=== PATIENT | female | born 1995 | race Caucasian/White ===

== ENCOUNTER 2016-02-24 15:15 | Emergency (ER) | payer OTHER ==
[~2016-02-24] VITALS: Ht 160 cm; Wt 79.2 kg
[~2016-02-24 15:15] MED LIST: FLV400 PO; FOLI800T17 PO; ONDA4TAB10 SL
[2016-02-24 15:26] VITALS: TEMP 37.2; Ht 160 cm; Wt 79.2 kg
[2016-02-24] MEDS ORDERED: SODIUM CHLORIDE 0.9% 1000ML 2,000 ML IV STA (16:05)
[2016-02-24] MEDS ORDERED: ONDANSETRON 8 MG/54 ML D5W IV STA (16:05)
[2016-02-24] MEDS ORDERED: ACETAMINOPHEN 500 MG TAB PO STA (16:06)
--- NOTE | 2016-02-24 16:11 | EMERGENCY ROOM VISIT NOTE ---
History Report prepared by Uyen: Alejandro Haywood Under the Supervision of: Dr. Antwon Parrish M.D. First contact with patient: 15:43 Chief Complaint: NAUSEA Stated Complaint: NAUSEA Nursing Triage Summary: Patient c/o n/v x 1 month, worse now. Denies diarrhea. 9 weeks . History of Present Illness The patient is a 20 year old female who presents to the Emergency Room with complaints of intermittent vomiting beginning one month prior to arrival. She currently rates her discomfort as a 7/10 in severity. The patient associates nausea, headache, and a dry mouth with today's symptoms. She states she is 9 weeks . The patient notes she was in the shower today, and could not control herself. She states she was seen in the ED three days ago for similar symptoms, in which, IV Zofran helped relieve her nausea. The patient notes she tried taking Zofran at home, but it did not relieve her nausea. She states she is thirsty and hungry, but she cannot keep anything down. The patient notes she has not taken anything for her headache. Pt denies LOC, fevers, chills, diaphoresis, visual changes, neck pain, chest pain, breathing difficulties, abdominal pain, back pain, melena, hematochezia, urinary symptoms, vaginal bleeding or discharge, numbness, weakness, lymphadenopathy, rash, or other complaints. 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 Review of Systems See HPI for pertinent positives and negatives. A total of ten systems were reviewed and were otherwise negative. Past Medical & Surgical Medical Problems: (1) Chronic Sinusitis Nos (2) Deviated Nasal Septum (3) Nasal Polyp Nos Surgical Problems: (1) No significant past surgical history Family History FH: diabetes mellitus Social History Smoking Status: Never Smoker Alcohol Use: none Drug Use: none Marital Status: Housing Status: lives with significant other Occupation Status: [employer] student Current/Historical Medications Scheduled Folic Acid (Cvs Folic Acid), 800 MCG PO DAILY Scheduled PRN Promethazine Hcl (Phenergan), 25 MG PO Q6H PRN for Nausea Miscellaneous Medications Pyridoxine Hcl (Vitamin B 6) Allergies Coded Allergies: No Known Allergies (Unverified , 02/24/16) Physical Exam Vital Signs Date Time Temp Pulse Resp B/P Pulse Ox O2 Delivery O2 Flow Rate FiO2 02/24/16 19:57 76 18 113/77 97 02/24/16 18:00 86 18 124/78 97 Room Air 02/24/16 15:26 37.2 112 18 124/83 99 Room Air Physical Exam GENERAL: Awake, alert, well-appearing, in no distress HENT: Normocephalic, atraumatic. Oropharynx unremarkable. EYES: Normal conjunctiva. Sclera non-icteric. NECK: Supple. No nuchal rigidity. FROM. No JVD. RESPIRATORY: Clear to auscultation. CARDIAC: Regular rate, normal rhythm. Extremities warm and well perfused. Pulses equal. ABDOMEN: Soft, non-distended. No tenderness to palpation. No rebound or guarding. No masses. RECTAL: Deferred. MUSCULOSKELETAL: Chest examination reveals no tenderness. The back is symmetrical on inspection without obvious abnormality. There is no CVA tenderness to palpation. No joint edema. LOWER EXTREMITIES: Calves are equal size bilaterally and non-tender. No edema. No discoloration. NEURO: Normal sensorium. No sensory or motor deficits noted. SKIN: No rash or jaundice noted. Medical Decision & Procedures Laboratory Results 02/24/16 16:20 Red Blood Count 4.93, Mean Corpuscular Volume 79.9, Mean Corpuscular Hemoglobin 26.6, Mean Corpuscular Hemoglobin Concent 33.2, Mean Platelet Volume 11.0, Neutrophils (%) (Auto) 67.5, Lymphocytes (%) (Auto) 21.8, Monocytes (%) (Auto) 9.0, Eosinophils (%) (Auto) 1.2, Basophils (%) (Auto) 0.2, Neutrophils # (Auto) 4.48, Lymphocytes # (Auto) 1.45, Monocytes # (Auto) 0.60, Eosinophils # (Auto) 0.08, Basophils # (Auto) 0.01 02/24/16 16:20 Test 02/24/16 16:15 02/24/16 16:20 02/24/16 18:35 Urine WBC (Auto) 10-30 /hpf (0-5) Urine RBC (Auto) 0-4 /hpf (0-4) Urine Hyaline Casts (Auto) 1-5 /lpf (0-5) Urine Epithelial Cells (Auto) >30 /lpf (0-5) Urine Bacteria (Auto) 3+ (NEG) Urine Pathogenic Casts /lpf (0) White Blood Count 6.64 K/uL (4.8-10.8) Red Blood Count 4.93 M/uL (4.2-5.4) Hemoglobin 13.1 g/dL (12.0-16.0) Hematocrit 39.4 % (37-47) Mean Corpuscular Volume 79.9 fL (80-100) Mean Corpuscular Hemoglobin 26.6 pg (25-34) Mean Corpuscular Hemoglobin Concent 33.2 g/dl (32-36) Platelet Count 248 K/uL (130-400) Mean Platelet Volume 11.0 fL (7.4-10.4) Neutrophils (%) (Auto) 67.5 % Lymphocytes (%) (Auto) 21.8 % Monocytes (%) (Auto) 9.0 % Eosinophils (%) (Auto) 1.2 % Basophils (%) (Auto) 0.2 % Neutrophils # (Auto) 4.48 K/uL (1.4-6.5) Lymphocytes # (Auto) 1.45 K/uL (1.2-3.4) Monocytes # (Auto) 0.60 K/uL (0.11-0.59) Eosinophils # (Auto) 0.08 K/uL (0-0.5) Basophils # (Auto) 0.01 K/uL (0-0.2) RDW Standard Deviation 43.0 fL (36.4-46.3) RDW Coefficient of Variation 14.8 % (11.5-14.5) Immature Granulocyte % (Auto) 0.3 % Immature Granulocyte # (Auto) 0.02 K/uL (0.00-0.02) Anion Gap 8.0 mmol/L (3-11) Est Creatinine Clear Calc Drug Dose 146.5 ml/min Estimated GFR () 150.0 Estimated GFR (Non- 129.4 BUN/Creatinine Ratio 6.3 (10-20) Calcium Level 8.6 mg/dl (8.5-10.1) Total Bilirubin 0.2 mg/dl (0.2-1) Direct Bilirubin < 0.1 mg/dl (0-0.2) Aspartate Amino Transf (AST/SGOT) 13 U/L (15-37) Alanine Aminotransferase (ALT/SGPT) 39 U/L (12-78) Alkaline Phosphatase 52 U/L (45-117) Total Protein 7.2 gm/dl (6.4-8.2) Albumin 3.5 gm/dl (3.4-5.0) Lipase 105 U/L (73-393) Urine Color YELLOW Urine Appearance CLEAR (CLEAR) Urine pH 7.5 (4.5-7.5) Urine Specific [place] 1.017 (1.000-1.030) Urine Protein NEG (NEG) Urine Glucose (UA) NEG (NEG) Urine Ketones 2+ (NEG) Urine Occult Blood NEG (NEG) Urine Nitrite NEG (NEG) Urine Bilirubin NEG (NEG) Urine Urobilinogen NEG (NEG) Urine Leukocyte Esterase NEG (NEG) Laboratory results reviewed by me Medications Administered Medications (Trade) Dose Ordered Sig/Naomi Route Start Time Stop Time Status Last Admin Dose Admin Sodium Chloride (Nss 1000ml) 2,000 ml @ 999 mls/hr Q2H1M STAT IV 02/24/16 16:05 02/24/16 18:05 DC 02/24/16 16:24 999 MLS/HR Ondansetron HCl (Zofran 8mg Iv) 8 mg NOW STAT IV 02/24/16 16:05 02/24/16 16:06 DC 02/24/16 16:24 8 MG Acetaminophen (Tylenol Tab) 1,000 mg NOW STAT PO 02/24/16 16:06 02/24/16 16:07 DC 02/24/16 16:24 1,000 MG Promethazine HCl (Phenergan 25MG Home Pack) 1 homepack UD ONCE PO 02/24/16 20:00 02/24/16 20:01 DC 02/24/16 19:54 1 HOMEPACK ED Course 1601: The patient was evaluated in room C1B. A complete history and physical exam was performed. 1605: Ordered Ondansetron HCl 8 mg IV, Sodium Chloride 2,000 ml @ 999 mls/hr IV. 1606: Ordered Tylenol Tab 1,000 mg PO. 1743: Reevaluated the patient at this time, and she is feeling better. 1826: Reevaluated the patient at this time, and she is tolerating fluids and crackers. She is still receiving her IV. 0: Reevaluated the patient at this time, and she is doing well. A repeat urinalysis was performed, and it was negative. The patient will be given more nausea medication. 1942: I spoke to DELLA Raphael ([facility]) about the patient's case, and he recommended Phenergan 25MG Q 6 hours for two days then as needed. He noted to have the patient follow up in the office. 1949: I reevaluated the patient. Discussed results and discharge instructions: She verbalized understanding and agreement. The patient is ready for discharge. 1999: Ordered Promethazine HCl 1 homepack PO. Medical Decision Triage Nursing notes reviewed. The patient's presentation and history were concerning for nausea, vomiting and first trimester . Etiologies such as hyperemesis, ocular abnormality, gastroenteritis, food borne illness, infections, obstruction, pancreatitis, appendicitis, diverticulitis, inflammatory bowel disease, GI bleed, biliary pathology, toxicologic as well as others were entertained. Patient was evaluated. She had a benign abdomen. She has not had any abdominal pain just nausea and vomiting. This has been going on for some time. The patient has recently been in the Emergency Room. She was doing better after IV Zofran. The patient had an IV established. She was given 2 L of IV fluids. She is given 8 mg IV Zofran. I discussed the risks and benefits of IV medication. The patient indicated understanding. She did feel much better with this. The patient had unremarkable CBC, chemistry panel, LFTs, lipase. Her urinalysis was somewhat concerning although this was not the best of specimens. The patient was hydrated and nursing instructed her on proper specimen collection. The patient had a repeat urinalysis done and this was clean. She has not had any urinary symptoms. I did contact Dr. Robertson of [facility]. He recommended trying Phenergan every 6 hours for the next 48 hours and then when necessary. The patient was given a home pack and a prescription for this. She will follow-up with the office. She had some normal nausea return prior to discharge and was given an oral dose of Phenergan. I gave my usual and customary discussion regarding this issue. By the evaluation outlined above other emergent etiologies such as those listed in the differential, as well as others, were deemed relatively unlikely. The patient was informed about the findings as listed above. All questions were answered and she was pleased with the treatment. Return instructions were outlined and the patient was discharged in stable condition. The patient was referred to [facility] for follow-up this week for a recheck of the current condition. The chart was completed utilizing [employer] Speech voice recognition software. Grammatical errors, random word insertions, pronoun errors, and incomplete sentences are an occasional consequence of this system due to software limitations, ambient noise, and hardware issues. Any formal questions or concerns about the content, text, or information contained within the body of this dictation should be directly addressed to the physician for clarification. Consults Time Called: 1941 Consulting Physician: DELLA Raphael ([facility]) Returned Call: 1942 I spoke to DELLA Raphael ([facility]) about the patient's case, and he recommended Phenergan 25MG Q 6 hours for two days then as needed. He noted to have the patient follow up in the office. Impression Primary Impression: Nausea Additional Impressions: Vomiting, First trimester Scribe Attestation The scribe's documentation has been prepared under my direction and personally reviewed by me in its entirety. I confirm that the note above accurately reflects all work, treatment, procedures, and medical decision making performed by me. Departure Information Dispostion Home / Self-Care Prescriptions Promethazine Hcl (Phenergan) 25 Mg Tab 25 MG PO Q6H Y for Nausea, #12 TAB Prov: Antwon Parrish MD 02/24/16 Referrals No Doctor, Assigned (PCP) Forms HOME CARE DOCUMENTATION FORM, IMPORTANT VISIT INFORMATION Patient Instructions A Signature Page, [facility] Additional Instructions VOMITING INSTRUCTIONS: DO NOT drive, drink alcohol, operate machinery, or perform dangerous activities today. You were given medications in the ER that can affect your ability to safely function or operate a vehicle. Phenergan(promethazine) tablets 25mg: Take one every 6 hours for nausea for the next 2 days and then take one every six hours as needed for nausea. Avoid alcohol, operating machinery or dangerous equipment, working on ladders or roofs , DRIVING, or situations where being under the influence may be dangerous. Acetaminophen(Tylenol) may be used for fever or pain. Use 1000mg every six hours as needed. Avoid using more than 4000mg in a 24 hour period. Rest and drink plenty of fluids as tolerated. Slow sips of water or sports drinks are recommended instead of large amounts all at once. Continue current medications. Once your stomach is settled start with a clear liquid diet (jello, soup broth, etc.) and then advance as tolerated. You should avoid full, heavy meals for about 24 hrs from the time your symptoms resolved. Return to the ER for persistent vomiting, fevers, abdominal pain, chest pains, difficulty breathing, black or bloody stools, worsening of your condition, or as needed. Follow up with your primary physician in 2-3 days for a recheck of your current condition
[2016-02-24 16:33] LABS: BASO % 0.2 %; BASO ABS # 0.01 K/uL (0-0.2); COMPLETE YES; EOS % 1.2 %; HEMATOCRIT 39.4 % (37-47); IG% 0.3 %; LYMPH % 21.8 %; LYMPH ABS # 1.45 K/uL (1.2-3.4); MEAN CELL VOLUME 79.9 fL (80-100); MEAN CORPUSCULAR HEMOGLOBIN 26.6 pg (25-34); MEAN CORPUSCULAR HGB CONC 33.2 g/dl (32-36); NEUT % 67.5 %; PLATELET COUNT 248 K/uL (130-400); RED BLOOD COUNT 4.93 M/uL (4.2-5.4); WHITE BLOOD COUNT 6.64 K/uL (4.8-10.8)
[2016-02-24 16:36] LABS: URINE APPEARANCE TURBID (CLEAR); URINE BILIRUBIN NEG (NEG); URINE COLOR DK YELLOW; URINE EPITHELIAL CELL AUTO >30 /lpf (0-5); URINE NITRITE NEG (NEG); URINE PH >= 9.0 (4.5-7.5); URINE SPECIFIC GRAVITY 1.026 (1.000-1.030); UROBILINOGEN NEG (NEG)
[2016-02-24 16:47] LABS: MANUAL MICROSCOPIC REQUIRED? NO; REVIEW REQ? YES; SULFASALICYLIC ACID NEG (NEG)
[2016-02-24 16:51] LABS: ALT/SGPT 39 U/L (12-78); AST/SGOT 13 U/L (15-37); BLOOD UREA NITROGEN 4 mg/dl (7-18); BUN/CREATININE RATIO 6.3 (10-20); CALCIUM 8.6 mg/dl (8.5-10.1); CARBON DIOXIDE 25 mmol/L (21-32); CHLORIDE 106 mmol/L (98-107); GLUCOSE 87 mg/dl (70-99); SODIUM 139 mmol/L (136-145)
[2016-02-24 16:53] LABS: ALKALINE PHOSPHATASE 52 U/L (45-117)
[2016-02-24] MEDS ORDERED: PYRI50TA77 PO (17:08)
[2016-02-24 18:51] LABS: URINE APPEARANCE CLEAR (CLEAR); URINE BILIRUBIN NEG (NEG); URINE COLOR YELLOW; URINE NITRITE NEG (NEG); URINE PH 7.5 (4.5-7.5); URINE SPECIFIC GRAVITY 1.017 (1.000-1.030); UROBILINOGEN NEG (NEG)
[2016-02-24 18:53] LABS: MANUAL MICROSCOPIC REQUIRED? NO; REVIEW REQ? NO
[2016-02-24] MEDS ORDERED: PROM25TA9 PO (19:47)
[2016-02-24 19:57] VITALS: BP 113/77; PULSE 76; O2SAT 97
[2016-02-24] MEDS ORDERED: PHENERGAN 25MG HOMEPACK PO ONE (20:00)
== END 2016-02-24 19:57 | disposition home or self-care (01) ==
LOC: C.EDB 15:16 → C.EDC 19:57
DX: O21.9 Vomiting of pregnancy, unspecified (principal); Z3A.09 9 weeks gestation of pregnancy

== ENCOUNTER 2016-02-28 20:19 | Emergency (ER) | payer OTHER ==
[~2016-02-28] VITALS: Ht 157.5 cm; Wt 79.2 kg
[~2016-02-28 20:19] MED LIST changes: -FLV400 PO; -ONDA4TAB10 SL; +PROM25TA9 PO; +PYRI50TA77 PO
[2016-02-28 20:22] VITALS: TEMP 36.9; Ht 157.5 cm; Wt 79.2 kg
[2016-02-28] MEDS ORDERED: SODIUM CHLORIDE 0.9% 1000ML 1,000 ML IV STA ×2 (20:51→22:07)
[2016-02-28] MEDS ORDERED: ONDANSETRON 8 MG/54 ML D5W IV ONE (21:00)
[2016-02-28] MEDS ORDERED: ACETAMINOPHEN 500 MG TAB PO STA (22:07)
--- NOTE | 2016-02-28 22:47 | EMERGENCY ROOM VISIT NOTE ---
History First contact with patient: 20:41 Chief Complaint: VOMITING Stated Complaint: NAUSEA, VOMITING Nursing Triage Summary: Pt has N/V for past two days, Pt 10 weeks History of Present Illness The patient is a 20 year old female who presents to the Emergency Room who is 10 weeks with complaints of nausea and vomiting which started yesterday. The patient states she is unable to keep anything down. She has tried the Zofran and Phenergan which she had at home from prior ER visits for the nausea without any relief. The patient was seen here on February 20 and February 23 for the same symptoms. The patient denies any urinary symptoms of frequency, urgency, dysuria or hematuria. The patient denies any diarrhea. The patient does admit to being constipated. Her last bowel movement was 4 days ago and was hard. She has not taken anything for the constipation. 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 Review of Systems 6 system review was performed and was negative unless stated otherwise in history of present illness. 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 MENTAL Status: Alert and oriented 3. EYES: No icterus noted MOUTH: Mucosa is slightly dry. NECK: Supple, no lymphadenopathy noted. No carotid bruits noted. LUNGS: Clear auscultation without wheezes rales or rhonchi. CARDIAC: Regular rate and rhythm without murmur. Pulses is full and equal throughout. BACK: No CVA tenderness noted. ABDOMEN: Positive bowel sounds all 4 quadrants. Soft, nontender to palpation without organomegaly or masses. EXTREMITIES: No cyanosis or edema noted. Medical Decision & Procedures Medications Administered Medications (Trade) Dose Ordered Sig/Naomi Route Start Time Stop Time Status Last Admin Dose Admin Sodium Chloride (Nss 1000ml) 1,000 ml @ 999 mls/hr Q1H1M STAT IV 02/28/16 20:51 02/28/16 21:51 DC 02/28/16 21:08 999 MLS/HR Ondansetron HCl (Zofran 8mg Iv) 8 mg NOW ONCE IV 02/28/16 21:00 02/28/16 21:01 DC 02/28/16 21:08 8 MG Acetaminophen 1000 mg 1,000 mg NOW STAT PO 02/28/16 22:07 02/28/16 22:08 DC 02/28/16 22:17 1,000 MG Sodium Chloride (Nss 1000ml) 1,000 ml @ 999 mls/hr Q1H1M STAT IV 02/28/16 22:07 02/28/16 23:07 02/28/16 22:17 999 MLS/HR ED Course The patient was evaluated. The patient's case was discussed with Dr. Parrish who agreed with treatment plan. IV access was obtained. The patient was given 1 L normal saline wide-open. The patient was given Zofran 8 mg IV. The patient's case was discussed with who agrees with treatment plan. CBC and differential and renal profile was ordered. Labs are reviewed and were unremarkable. The patient was reevaluated and was feeling slightly better except for she had a headache. The patient was given additional 1 L normal saline wide-open and Tylenol 1 g by mouth for headache. The patient was able to keep down shahla jazzy and crackers. Medical Decision Patient has been here on several occasions for the same symptoms due to her . Labs were ordered to evaluate for dehydration. The patient was hydrated did not have any further episodes of vomiting while in the emergency room and was able to keep down liquids and solids before discharge. Impression Primary Impression: NAUSEA WITH VOMITING, UNSPECIFIED Departure Information Dispostion Home / Self-Care Condition GOOD Referrals [facility] (PCP) Forms HOME CARE DOCUMENTATION FORM, IMPORTANT VISIT INFORMATION Patient Instructions A Signature Page, ED Nausea Vomiting, [facility] Additional Instructions Push fluids. Follow bland diet. Advance diet slowly as tolerated. As soon as you start feeling nauseated, take the Zofran or Phenergan you were prescribed for nausea. Call your MANUFACTURING AREA MANAGER tomorrow for follow-up appointment.
[2016-02-28 22:59] VITALS: BP 127/92; PULSE 98; O2SAT 97
== END 2016-02-28 23:01 | disposition home or self-care (01) ==
LOC: C.EDB 20:20 → C.EDC 23:01
DX: R11.2 Nausea with vomiting, unspecified (principal)

== ENCOUNTER 2016-03-04 13:33 | Emergency (ER) | payer OTHER ==
[~2016-03-04] VITALS: Ht 160 cm; Wt 79.1 kg
[2016-03-04 13:40] VITALS: TEMP 37.5; Ht 160 cm; Wt 79.1 kg
[2016-03-04] MEDS ORDERED: ONDANSETRON INJ 2 MG/ML 2 ML VIAL IV STA (13:47)
[2016-03-04] MEDS ORDERED: SODIUM CHLORIDE 0.9% 1000ML 1,000 ML IV STA (13:47)
--- NOTE | 2016-03-04 15:08 | DIAGNOSTIC IMAGING REPORT ---
ULTRASOUND <14 WKS SINGLE CLINICAL HISTORY: left pelvic pain/11 weeks COMPARISON STUDY: Pelvic ultrasound 12/27/2015. FINDINGS: Transabdominal scanning of the pelvis performed. The patient deferred transvaginal scanning. There is a single intrauterine gestational sac and pole demonstrating a crown-rump length of 3.95 cm. This is consistent with a 10 week and 6 day intrauterine gestation. heart rate was 157 bpm. No pelvic free fluid. There is a 2 cm cyst within the right ovary. Normal color flow within the bilateral ovaries. Within the anterior uterine wall there is a lobular heterogeneous area which measures approximately 5 cm within the myometrium. This results in mild mass effect along the gestational sac. This was not present on the prior pelvic ultrasound. This demonstrates color flow and is therefore unlikely to represent a subchorionic hematoma. Therefore, this is consistent with a uterine contraction. IMPRESSION: 1. Single viable 10 week and 6 day intrauterine gestation. The heart rate was 157 bpm. 2. A 5 cm lobular heterogeneous area within the anterior uterine wall. This was not present on the prior study. Given the vascular nature of this area this most likely represents a uterine contraction. Follow-up nonemergent pelvic ultrasound in 24 hours can be performed to ensure resolution. Electronically signed by: Juanjo Head M.D. 03/04/2016 3:06 PM Dictated Date/Time: 03/04/2016 2:58 PM
--- NOTE | 2016-03-04 15:43 | EMERGENCY ROOM VISIT NOTE ---
History First contact with patient: 13:46 Chief Complaint: VOMITING Stated Complaint: NAUSEA/VOMITING Nursing Triage Summary: N/V, 11 weeks . Pt states she is coming to ED for fluids and zofran. OBGYN told her to come to ED. History of Present Illness The patient is a 20 year old female who presents to the Emergency Room with complaints of nausea and vomiting. The patient is 11 weeks and has been having difficulty controlling her nausea and vomiting. She has tried over- the-counter Zofran and Phenergan without any relief. The patient has been in emergency room on multiple occasions for the same thing in the past. The patient was sent here today by her POLYGRAPH TECHNICIAN. The patient also is complaining of left-sided pelvic pain intermittently for the past week she states it is worse when she was sitting. The patient has been having problems with constipation but states she had a normal bowel movement last evening. The patient denies any urinary symptoms of frequency, urgency or dysuria. Review of Systems 10 system review was performed and was negative unless stated otherwise history of present illness. Past Medical/Surgical History Medical Problems: (1) Chronic Sinusitis Nos (2) Deviated Nasal Septum (3) Nasal Polyp Nos Surgical Problems: (1) No significant past surgical history Family History FH: diabetes mellitus Social History Smoking Status: Never Smoker Alcohol Use: none Drug Use: none Marital Status: Housing Status: lives with significant other Occupation Status: [employer] student Current/Historical Medications Scheduled Folic Acid (Cvs Folic Acid), 800 MCG PO DAILY Pyridoxine Hcl (Vitamin B 6), 1 TAB PO DAILY Scheduled PRN Promethazine Hcl (Phenergan), 25 MG PO Q6H PRN for Nausea Allergies Coded Allergies: No Known Allergies (Unverified , 03/04/16) Physical Exam Vital Signs Date Time Temp Pulse Resp B/P Pulse Ox O2 Delivery O2 Flow Rate FiO2 03/04/16 13:40 37.5 112 17 119/84 99 Room Air Physical Exam GENERAL: 20-year-old female who is 11 weeks appears in no acute distress. MENTAL STATUS: Alert and oriented 3. MOUTH: Mucosa is moist NECK: Supple, no lymphadenopathy noted. No carotid bruits noted. LUNGS: Clear auscultation without wheezes rales or rhonchi. CARDIAC: Regular rate and rhythm without murmur. Pulses is full and equal throughout. BACK: No CVA tenderness noted. ABDOMEN: Positive bowel sounds all 4 quadrants. Soft, patient has tenderness to palpation in the left pelvic region otherwise nontender. EXTREMITIES: No cyanosis or edema noted. Medical Decision & Procedures ER Provider Diagnostic Interpretation: ULTRASOUND <14 WKS SINGLE CLINICAL HISTORY: left pelvic pain/11 weeks COMPARISON STUDY: Pelvic ultrasound 12/27/2015. FINDINGS: Transabdominal scanning of the pelvis performed. The patient deferred transvaginal scanning. There is a single intrauterine gestational sac and pole demonstrating a crown-rump length of 3.95 cm. This is consistent with a 10 week and 6 day intrauterine gestation. heart rate was 157 bpm. No pelvic free fluid. There is a 2 cm cyst within the right ovary. Normal color flow within the bilateral ovaries. Within the anterior uterine wall there is a lobular heterogeneous area which measures approximately 5 cm within the myometrium. This results in mild mass effect along the gestational sac. This was not present on the prior pelvic ultrasound. This demonstrates color flow and is therefore unlikely to represent a subchorionic hematoma. Therefore, this is consistent with a uterine contraction. IMPRESSION: 1. Single viable 10 week and 6 day intrauterine gestation. The heart rate was 157 bpm. 2. A 5 cm lobular heterogeneous area within the anterior uterine wall. This was not present on the prior study. Given the vascular nature of this area this most likely represents a uterine contraction. Follow-up nonemergent pelvic ultrasound in 24 hours can be performed to ensure resolution. Electronically signed by: Juanjo Head M.D. 03/04/2016 3:06 PM Medications Administered Medications (Trade) Dose Ordered Sig/Naomi Route Start Time Stop Time Status Last Admin Dose Admin Sodium Chloride (Nss 1000ml) 1,000 ml @ 999 mls/hr Q1H1M STAT IV 03/04/16 13:47 03/04/16 14:47 DC 03/04/16 14:13 999 MLS/HR Ondansetron HCl (Zofran Inj) 4 mg NOW STAT IV 03/04/16 13:47 03/04/16 13:48 DC 03/04/16 14:13 4 MG ED Course The patient was evaluated. IV access was obtained. The patient was given 1 L normal saline wide-open. The patient was given Zofran 4 mg IV push for nausea. A pelvic ultrasound was ordered and interpreted by the radiologist as above with a possible uterine contraction. A follow-up ultrasound in 24 hours was recommended. I had the caseworker protective services call the patient's POLYGRAPH TECHNICIAN. They stated that they will call the patient with an appointment time for tomorrow for follow -up. The patient was informed of the treatment plan and was in agreement. She was reevaluated and was feeling much better. The patient was discharged home in stable condition. Medical Decision An ultrasound of the pelvis was performed since she was having left pelvic pain. A follow-up was recommended in 24 hours therefore the POLYGRAPH TECHNICIAN was contacted for the follow-up to be performed in the office which they are in agreement with treatment plan. Otherwise the patient had presented with similar symptoms that she has been sent to the emergency room by her POLYGRAPH TECHNICIAN for uncontrolled nausea and vomiting despite taking oral anti-emetics Impression Primary Impression: Vomiting Additional Impression: Abnormal ultrasound of endometrium Departure Information Dispostion Home / Self-Care Condition GOOD Referrals [facility] (PCP) [facility] Forms HOME CARE DOCUMENTATION FORM, IMPORTANT VISIT INFORMATION Patient Instructions A Signature Page, My [employer] Additional Instructions Push fluids. Take Zofran at the earliest onset of nausea. Your POLYGRAPH TECHNICIAN office will be calling you today or tomorrow for a follow-up appointment tomorrow to include an ultrasound for reevaluation. Problem Qualifiers Primary Impression: Vomiting Vomiting Intractability: non-intractable Nausea presence: with nausea
[2016-03-04 16:33] VITALS: BP 118/75; PULSE 102; O2SAT 100
== END 2016-03-04 16:35 | disposition home or self-care (01) ==
LOC: C.EDB 13:34
DX: R11.2 Nausea with vomiting, unspecified (principal); N83.201 Unspecified ovarian cyst, right side

== ENCOUNTER → 2016-04-09 | Outpatient (CLI) | payer OTHER ==
[2016-04-09 14:46] LABS: GTGD 50 Grams
[2016-04-11 15:17] LABS: AFP CONCENTRATION 11.2 NG/ML; AFP MULTIPLE OF MEDIAN 0.38; AFPTS INSULIN DEP DIABETIC? NO; AFPTS MATERNAL WT 176 LBS; ALPHA-FETOPROTEIN RACE OTHER=O; EDD DETERMINED BY ULTRASOUND; ESTRIOL MULTIPLE OF MEDIAN 1.02; HISTORY OF NTD NO; INHIBIN A 99 PG/ML; INHIBIN A MOM 0.62; REPEAT SAMPLE? NO; hCG MULTIPLE OF MEDIAN 0.51
== END | disposition home or self-care (01) ==
LOC: C.LAB1850 12:08
PROVIDERS: ATTEND Obstetrics & Gynecology
DX: Z34.00 Encounter for supervision of normal first pregnancy, unspecified trimester (principal)

== ENCOUNTER 2016-04-25 17:31 | Outpatient (CLI) | payer OTHER ==
[~2016-04-25] VITALS: Ht 160 cm; Wt 80.0 kg
[2016-04-25] MEDS ORDERED: ACETAMINOPHEN 325 MG TAB PO PRN (18:30)
[2016-04-25 19:43] LABS: URINE APPEARANCE CLEAR (CLEAR); URINE BILIRUBIN NEG (NEG); URINE COLOR YELLOW; URINE EPITHELIAL CELL AUTO 20-30 /lpf (0-5); URINE NITRITE NEG (NEG); URINE PH 6.5 (4.5-7.5); URINE SPECIFIC GRAVITY 1.007 (1.000-1.030); UROBILINOGEN NEG (NEG); ZZUR CULT IF INDIC CLEAN CATCH NO
[2016-04-25 19:48] LABS: MANUAL MICROSCOPIC REQUIRED? NO; REVIEW REQ? NO
[2016-04-25 20:04] VITALS: Ht 160 cm; Wt 80.0 kg
== END 2016-04-25 20:20 | disposition home or self-care (01) ==
LOC: C.OPB 17:31 → C.LD 17:31 → C.OPB 20:20
PROVIDERS: ATTEND Obstetrics & Gynecology
DX: O26.852 Spotting complicating pregnancy, second trimester (principal); Z3A.18 18 weeks gestation of pregnancy

== ENCOUNTER 2016-05-10 23:54 | Emergency (ER) | payer OTHER ==
[~2016-05-10] VITALS: Ht 158.8 cm; Wt 83.6 kg
[2016-05-10 23:58] VITALS: TEMP 36.5; Ht 158.8 cm; Wt 83.6 kg
--- NOTE | 2016-05-11 00:57 | EMERGENCY ROOM VISIT NOTE ---
History Report prepared by Uyen: Frederick Parisi Under the Supervision of: Dr. Alesia Colon D.O. First contact with patient: 00:43 Chief Complaint: CONGESTION Stated Complaint: DIFFICULTY BREATHING - WORK RELATED Nursing Triage Summary: Patient reports that her throat has been dry and sore since yesterday and that is making it difficult to breath. Patient also reports sinus pain and congestion, states that she can feel the mucous running down the back of her throat. Bilateral tonsils are swollen, although the left tonsil is more swollen than the right. Some white patchy exudate noted. Throat is reddened. Reports that she is 20 weeks and there aren't many otc medications she is able to take. History of Present Illness The patient is a 20 year old female who presents to the Emergency Room with complaints of persistent cold-like symptoms that started yesterday. The patient also complains of shortness of breath, sinus pain, congestion, and feeling like the mucus is dripping down the back of her throat. The patient describes that her throat and chest feel dry. She notes that in the mornings she has been throwing up every day because of the post-nasal drip. The patient has a history of similar symptoms in the past. She is 20 weeks and has not been able to get much sleep. She notes that she cannot take many OTC medications. She denies fevers or chills. Source of History: patient Onset: yesterday Position: other (global) Timing: other (persistent) Associated Symptoms: + SOB, + vomiting, No chills, No fevers Note: Other associated symptoms: sinus pain, congestion, feeling like the mucus is dripping down her throat, throat/chest feel dry Review of Systems See HPI for pertinent positives & negatives. A total of 10 systems reviewed and were otherwise negative. Past Medical & Surgical Medical Problems: (1) Chronic Sinusitis Nos (2) Deviated Nasal Septum (3) Nasal Polyp Nos (4) with 18 completed weeks gestation (5) Vaginal bleeding during , antepartum Surgical Problems: (1) No significant past surgical history Family History FH: diabetes mellitus Social History Smoking Status: Never Smoker Alcohol Use: none Drug Use: none Marital Status: Housing Status: lives with significant other Occupation Status: [employer] student Current/Historical Medications Scheduled Folic Acid (Cvs Folic Acid), 800 MCG PO DAILY Pyridoxine Hcl (Vitamin B 6), 1 TAB PO DAILY Scheduled PRN Promethazine Hcl (Phenergan), 25 MG PO Q6H PRN for Nausea Allergies Coded Allergies: No Known Allergies (Unverified , 04/25/16) Physical Exam Vital Signs Date Time Temp Pulse Resp B/P Pulse Ox O2 Delivery O2 Flow Rate FiO2 05/11/16 02:12 97 18 107/91 Room Air 05/11/16 01:36 106 20 111/61 98 Room Air 05/11/16 00:08 Room Air 05/10/16 23:58 36.5 100 21 133/75 100 Physical Exam HEENT: Head - normocephalic and atraumatic Pupils are equal, round, and reactive to light. Extraocular eye muscles are intact, and sclera are anicteric. Nose - moist nasal mucosa with enlarged red turbinates. Mouth - moist buccal mucosa. Exudate on bilateral tonsils. Tonsils enlarged bilaterally. Not edematous or erythematous. Neck: Supple; no JVD, nuchal rigidity, cervical lymphadenopathy. Heart: Regular rate and rhythm. There is a normal S1 and S2 with no murmurs, clicks, or gallops appreciated. Lungs: Clear to auscultation bilaterally with no wheezes, rales, or rhonchi. Abdomen: Soft, completely nontender, nondistended, with good bowel sounds. There are no palpable pulsatile masses or hepatosplenomegaly. There is no guarding, rigidity, or rebound noted. Extremities: No evidence of cyanosis, clubbing, or edema. There are easily palpable peripheral pulses. Skin: warm and dry with good turgor and no rashes. Medical Decision & Procedures Medications Administered Medications (Trade) Dose Ordered Sig/Naomi Route Start Time Stop Time Status Last Admin Dose Admin Diphenhydramine HCl (Benadryl Cap) 25 mg NOW ONCE PO 05/11/16 01:45 05/11/16 01:46 DC 05/11/16 02:11 25 MG Procedure Benadryl Cap PO ED Course 0052: Past medical records reviewed. The patient was evaluated in room A9. A complete history and physical exam was performed. 0134: At this time, I reevaluated the patient and she was resting. 0145: Ordered Benadryl Cap 25 mg PO. 0202: Upon reevaluation, the patient is resting comfortably. I recommended that she continue to use Benadryl to help with her congestion. She was instructed to follow-up with OB tomorrow for recheck and additional suggestions Medical Decision The patient is a 20 year old female who presents to the ED with cold-like symptoms. Differential diagnosis includes sinus infection, sinusitis, post- nasal drip, or URI. This is a 20-year-old [place] patient has a history of sinus congestion prior to . Since she has been , the symptoms have worsened. She states that she is unable to lie flat because of the significant postnasal drip. The patient has been having increased difficulty sleeping as a result of this. The patient was encouraged to try Benadryl since this is one of killing medications that she can use during . Impression Primary Impression: Post-nasal drip Scribe Attestation The scribe's documentation has been prepared under my direction and personally reviewed by me in its entirety. I confirm that the note above accurately reflects all work, treatment, procedures, and medical decision making performed by me. Departure Information Dispostion Home / Self-Care Referrals Sydney Lord C.R.N.P. (PCP) Forms HOME CARE DOCUMENTATION FORM, IMPORTANT VISIT INFORMATION Patient Instructions My [facility] [employer] Additional Instructions Rest with your head elevated. Take benadryl for congestion - 25mg every 4 hours Follow up on Thursday with OB
[2016-05-11 01:36] VITALS: O2SAT 98
[2016-05-11 02:12] VITALS: BP 107/91; PULSE 97
== END 2016-05-11 02:17 | disposition home or self-care (01) ==
LOC: C.EDB 23:55 → C.EDA 05-11 02:17
DX: O26.892 Other specified pregnancy related conditions, second trimester (principal); R09.82 Postnasal drip; Z3A.20 20 weeks gestation of pregnancy

== ENCOUNTER 2016-08-06 19:57 | Emergency (ER) | payer OTHER ==
[~2016-08-06] VITALS: Ht 157.5 cm; Wt 88.7 kg
[2016-08-06 19:59] VITALS: TEMP 36.9; Ht 157.5 cm; Wt 88.7 kg
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
[2016-08-06 22:23] LABS: BASO % 0.1 %; BASO ABS # 0.01 K/uL (0-0.2); COMPLETE YES; EOS % 1.5 %; HEMATOCRIT 32.7 % (37-47); IG% 1.8 %; LYMPH % 10.9 %; LYMPH ABS # 0.86 K/uL (1.2-3.4); MEAN CELL VOLUME 77.3 fL (80-100); MEAN CORPUSCULAR HEMOGLOBIN 24.3 pg (25-34); MEAN CORPUSCULAR HGB CONC 31.5 g/dl (32-36); MEAN PLATELET VOLUME 9.3 fL (7.4-10.4); NEUT % 77.7 %; PLATELET COUNT 279 K/uL (130-400); RED BLOOD COUNT 4.23 M/uL (4.2-5.4); WHITE BLOOD COUNT 7.92 K/uL (4.8-10.8)
[2016-08-06 22:33] LABS: INR 0.9 (0.9-1.1); PARTIAL THROMBOPLASTIN RATIO 0.9
[2016-08-06 22:40] LABS: CALCIUM 8.5 mg/dl (8.5-10.1)
[2016-08-06 22:41] LABS: ALT/SGPT 16 U/L (12-78); BLOOD UREA NITROGEN 3 mg/dl (7-18); BUN/CREATININE RATIO 5.7 (10-20); CARBON DIOXIDE 24 mmol/L (21-32); CHLORIDE 105 mmol/L (98-107); CREATININE 0.56 mg/dl (0.60-1.20); GLUCOSE 88 mg/dl (70-99); POTASSIUM 3.6 mmol/L (3.5-5.1); SODIUM 138 mmol/L (136-145)
[2016-08-06 22:44] LABS: ALKALINE PHOSPHATASE 114 U/L (45-117); AST/SGOT 17 U/L (15-37)
[2016-08-06 23:30] LABS: URINE APPEARANCE CLOUDY (CLEAR); URINE BILIRUBIN NEG (NEG); URINE COLOR YELLOW; URINE EPITHELIAL CELL AUTO >30 /lpf (0-5); URINE NITRITE NEG (NEG); URINE SPECIFIC GRAVITY 1.015 (1.000-1.030); UROBILINOGEN NEG (NEG); ZZUR CULT IF INDIC CLEAN CATCH NO
[2016-08-06 23:36] LABS: MANUAL MICROSCOPIC REQUIRED? NO; REVIEW REQ? NO
[2016-08-07 00:23] VITALS: BP 112/79; PULSE 112; O2SAT 99
--- NOTE | 2016-08-07 06:41 | DIAGNOSTIC IMAGING REPORT ---
ULTRASOUND VENOUS DOPPLER LWR EXT BILA CLINICAL HISTORY: Bilateral lower extremity swelling. . COMPARISON STUDY: 01/17/2016 FINDINGS: Real-time and color flow Doppler imaging were performed. Flow was seen within the femoral, popliteal and calf veins with no intraluminal thrombus demonstrated. The saphenous vein is patent. IMPRESSION: No evidence of lower extremity DVT. Electronically signed by: Adi Michelle M.D. 08/07/2016 6:40 AM Dictated Date/Time: 08/07/2016 6:40 AM
== END 2016-08-07 00:27 | disposition home or self-care (01) ==
LOC: C.EDB 19:58
DX: O26.93 Pregnancy related conditions, unspecified, third trimester (principal); R60.9 Edema, unspecified; R00.0 Tachycardia, unspecified; Z83.3 Family history of diabetes mellitus

== ENCOUNTER → 2016-08-08 | Outpatient (CLI) | payer OTHER ==
[2016-08-08 16:33] LABS: HEMATOCRIT 34.3 % (37-47)
[2016-08-08 19:07] LABS: GTGD 50 Grams
== END | disposition home or self-care (01) ==
LOC: C.LAB1850 15:00
PROVIDERS: ATTEND Obstetrics & Gynecology
DX: Z34.02 Encounter for supervision of normal first pregnancy, second trimester (principal)

== ENCOUNTER → 2016-08-12 | Outpatient (CLI) | payer OTHER ==
[2016-08-12 18:46] LABS: URINE APPEARANCE CLEAR (CLEAR); URINE BILIRUBIN NEG (NEG); URINE COLOR YELLOW; URINE EPITHELIAL CELL AUTO >30 /lpf (0-5); URINE NITRITE NEG (NEG); URINE PH 6.5 (4.5-7.5); URINE SPECIFIC GRAVITY 1.018 (1.000-1.030); UROBILINOGEN NEG (NEG)
[2016-08-12 19:42] LABS: MANUAL MICROSCOPIC REQUIRED? NO; REVIEW REQ? NO
== END | disposition home or self-care (01) ==
LOC: C.LABSPEC 17:30
PROVIDERS: ATTEND Obstetrics & Gynecology
DX: Z34.03 Encounter for supervision of normal first pregnancy, third trimester (principal)

== ENCOUNTER → 2016-08-15 | Outpatient (CLI) | payer OTHER | END | disposition home or self-care (01) | LOC: C.LAB1850 09:54 | PROVIDERS: ATTEND Obstetrics & Gynecology | DX: Z34.03 Encounter for supervision of normal first pregnancy, third trimester (principal) ==

== ENCOUNTER 2016-08-16 14:54 | Outpatient (CLI) | payer OTHER ==
[~2016-08-16] VITALS: Ht 160 cm; Wt 86.6 kg
[2016-08-16 15:59] VITALS: Ht 160 cm; Wt 86.6 kg
--- NOTE | 2016-08-19 10:59 | EDITING REQUIRED CODING QUERY ---
DIAGNOSIS NEEDED To promote full compliance with coding requirements relating to patient care, physician participation is requested in all cases of hcc coders uncertainty. Please assist us with the question(s) below: Coding Question: The patient received care in labor and delivery on 08/16/16 as noted within the record. Please document the diagnosis that is being addressed by the medication/treatment. Provider Response: DIAGNOSIS: Decreased movement Thank you for your assistance, Lisy Francisco - Clockmaker
== END 2016-08-16 15:50 | disposition home or self-care (01) ==
LOC: C.LD 14:54 → C.OPB 14:54
PROVIDERS: ATTEND Obstetrics & Gynecology
DX: O36.8130 Decreased fetal movements, third trimester, not applicable or unspecified (principal); Z3A.34 34 weeks gestation of pregnancy

== ENCOUNTER → 2016-08-25 | Outpatient (CLI) | payer OTHER ==
[2016-08-25 18:13] LABS: ALT/SGPT 16 U/L (12-78); BLOOD UREA NITROGEN 5 mg/dl (7-18); BUN/CREATININE RATIO 8.4 (10-20); CALCIUM 8.8 mg/dl (8.5-10.1); CARBON DIOXIDE 23 mmol/L (21-32); CHLORIDE 106 mmol/L (98-107); CREATININE 0.55 mg/dl (0.60-1.20); GLUCOSE 113 mg/dl (70-99); POTASSIUM 3.8 mmol/L (3.5-5.1); SODIUM 137 mmol/L (136-145)
[2016-08-25 18:16] LABS: ALB/GLOB RATIO 0.7 (0.9-2); ALKALINE PHOSPHATASE 118 U/L (45-117); AST/SGOT 12 U/L (15-37)
[2016-09-01 20:20] LABS: CHENODEOXYCHOLIC ACID 1.9 umol/L (< OR = 3.1); CHOLIC ACID <0.5 umol/L (< OR = 1.8); DEOXYCHOLIC ACID 0.7 umol/L (< OR = 2.4); TOTAL BILE ACIDS 2.6 umol/L (< OR = 6.8)
== END | disposition home or self-care (01) ==
LOC: C.LAB1850 16:14
PROVIDERS: ATTEND Obstetrics & Gynecology
DX: R21 Rash and other nonspecific skin eruption (principal)

== ENCOUNTER 2016-09-04 00:29 | Inpatient (IN) | payer OTHER ==
[~2016-09-04] VITALS: Ht 160 cm; Wt 89.5 kg
[2016-09-04] MEDS ORDERED: LACTATED RINGER'S 1000ML 500 ML IV ONE (01:19)
[2016-09-04] MEDS ORDERED: LACTATED RINGER'S 1000ML 1,000 ML IV SCH ×2 (01:19→06:18)
[2016-09-04 02:19] VITALS: Ht 160 cm; Wt 89.5 kg
[2016-09-04] MEDS ORDERED: BUTORPHANOL TARTRATE 1 MG/ML VIAL IV PRN (04:30)
[2016-09-04] MEDS ORDERED: LACTATED RINGER'S 1000ML 1,000 ML IV PRN (06:18)
[2016-09-04] MEDS ORDERED: FENTANYL 2MCG/ML ROPIV 1.25MG/ML 100ML BAG EPI ONE (06:20)
[2016-09-04] MEDS ORDERED: EpHEDrine SULFATE INJ 50 MG/ML AMP ONE (06:20)
[2016-09-04] MEDS ORDERED: BUPIVACAINE 0.25% 30 ML VIAL ONE (06:20)
[2016-09-04] MEDS ORDERED: FENTANYL CITRATE INJ 50 MCG/1 ML 2 ML VIAL ONE (06:23)
[2016-09-04] MEDS ORDERED: PENICILLIN G POTASSIUM IV 6 MU in DEXTROSE 5% 250ML 250 ML IV STA (06:23)
[2016-09-04] MEDS ORDERED: PENICILLIN G POTASSIUM IV 3 MU in DEXTROSE 5% 100ML 100 ML IV PRN (06:30)
[2016-09-04 07:00] LABS: MEAN CORPUSCULAR HEMOGLOBIN 23.3 pg (25-34); MEAN CORPUSCULAR HGB CONC 31.4 g/dl (32-36); MEAN PLATELET VOLUME 10.2 fL (7.4-10.4); PLATELET COUNT 285 K/uL (130-400); RED BLOOD COUNT 4.73 M/uL (4.2-5.4)
[2016-09-04] MEDS ORDERED: OXYTOCIN 30 UNITS/500ML NSS IV ONE (07:34)
[2016-09-04] MEDS ORDERED: LACTATED RINGER'S 1000ML 500 ML IV PRN (07:42)
[2016-09-04] MEDS ORDERED: NALOXONE HCL INJ 1 MG in SODIUM CHLORIDE 0.9% 1000ML 1,000 ML IV PRN (07:42)
[2016-09-04] MEDS ORDERED: FENTANYL 2MCG/ML ROPIV 1.25MG/ML 100ML BAG EPI PRN (07:45)
[2016-09-04] MEDS ORDERED: DiphenhydrAMINE HCL 50 MG/ML VIAL IV PRN (07:45)
[2016-09-04] MEDS ORDERED: NALOXONE HCL INJ 0.4 MG/1 ML VIAL/CARP IV PRN (07:45)
[2016-09-04] MEDS ORDERED: EpHEDrine SULFATE INJ 50 MG/ML AMP IV PRN (07:45)
[2016-09-04] MEDS ORDERED: NALBUPHINE HCL INJ 10 MG/ML AMP IV PRN (07:45)
[2016-09-04] MEDS ORDERED: SUPERCREAM 0.870 % 15GM JAR EXT PRN (09:15)
[2016-09-04] MEDS ORDERED: ACETAMINOPHEN 325 MG TAB PO PRN (09:15)
[2016-09-04] MEDS ORDERED: BENZOCAINE 20% AER SPR 82.5 GM CAN EXT PRN (09:15)
[2016-09-04] MEDS ORDERED: ACETAMINOPHEN/CODEINE 300/30MG TAB PO PRN ×2 (09:15)
[2016-09-04] MEDS ORDERED: LANOLIN OINT EXT PRN ×2 (09:15)
[2016-09-04] MEDS ORDERED: OXYTOCIN 30 UNITS/500ML NSS IV PRN (09:15)
--- NOTE | 2016-09-04 10:21 | Vaginal Delivery Summary ---
Vaginal Delivery Summary Dale is a 20-year-old 1 P0 white female with an EDC of 09/24/2016 who presented at 37 weeks in active labor. She received epidural analgesia and progressed to full dilation. She pushed through 1 contraction for delivery of a viable male . Mouth and nasopharynx were suctioned on the perineum. The rest of the infant delivered quickly. The was then placed on the mother's abdomen for further attention and drying. There is vigorous crying and the infant was moving all 4 limbs. The placenta was expressed intact with a three-vessel cord. A first-degree vaginal laceration was repaired with 2-0 chromic in the usual fashion. Estimated blood loss was 250 mL. bleeding was controlled with dilute Pitocin. Mother and were doing well after delivery.
--- NOTE | 2016-09-04 10:38 | Anesthesia Procedure Note ---
Anesthesia Epidural Removal Nt Date & Time Sep 04, 2016 at 10:37 Vital Signs Pain Intensity: 0.0 Notes Mental Status: alert / awake / arousable, participated in evaluation Nausea / Vomiting: adequately controlled Pain: adequately controlled Airway Patency, RR, SpO2: stable & adequate BP & HR: stable & adequate Hydration State: stable & adequate Neuraxial Anesthesia: was administered Anesthetic Complications: no major complications apparent, pt satisfied with anesthetic care Epidural: removed without complications, with tip intact
[2016-09-04] MEDS: IBUPROFEN 600 MG TAB PO PRN ×2 (12:38→17:56)
[2016-09-04 12:40] VITALS: BP 113/77; PULSE 121; TEMP 36.9
[2016-09-04 15:45] VITALS: BP 98/60; PULSE 89; TEMP 37; O2SAT 99
[2016-09-04 19:30] VITALS: BP 110/75; PULSE 101; TEMP 36.9; O2SAT 99
[2016-09-04] MEDS: DOCUSATE SODIUM 100 MG CAP PO SCH (20:00)
[2016-09-04 23:20] VITALS: BP 97/66; PULSE 102; TEMP 37.2; O2SAT 99
[2016-09-05] MEDS: IBUPROFEN 600 MG TAB PO PRN ×4 (04:38→18:21)
[2016-09-05 04:55] VITALS: BP 104/71; PULSE 103; TEMP 36.7; O2SAT 99
[2016-09-05 06:51] LABS: HEMATOCRIT 29.9 % (37-47)
[2016-09-05 07:00] VITALS: BP 122/89; PULSE 96; TEMP 36.7; O2SAT 97
--- NOTE | 2016-09-05 07:55 | Progress Note ---
Subjective Sep 05, 2016. Subjective conversation w/ patient, physical exam Ambulation: ambulating normally Voiding: no voiding problems Passing Gas: Yes Diet Tolerance: Regular Diet Lochia: Small Feeding Type: Breast Feeding Review of Systems Constitutional: No fever, No chills, No sweats, No weight loss, No weakness, No fatigue, No problem reported Breast: No see HPI, No breast lump, No change in shape, No nipple discharge, No breast pain, No problem reported Objective Vital Signs Date Time Temp Pulse Resp B/P (MAP) Pulse Ox O2 Delivery O2 Flow Rate FiO2 09/05/16 07:00 36.7 96 20 122/89 (100) 97 Room Air 09/05/16 04:55 36.7 103 20 104/71 (82) 99 Room Air 09/04/16 23:20 99 Room Air 09/04/16 23:20 37.2 102 18 97/66 (76) 99 Room Air 09/04/16 19:30 36.9 101 18 110/75 (87) 99 Room Air 09/04/16 15:45 99 Room Air 09/04/16 15:45 37.0 89 16 98/60 (73) 99 Room Air 09/04/16 12:40 36.9 121 18 113/77 (89) Room Air 09/04/16 12:40 Room Air Physical Exam General Appearance: WELL-APPEARING, NO APPARENT DISTRESS Abdomen: non tender, soft Fundus: Firm, Non-Tender, Relation to Umbilicus (3 below U) Extremities: no calf tenderness Laboratory Results Last 24 Hours Test 09/05/16 06:23 Hemoglobin 9.2 g/dL Hematocrit 29.9 % Assessment and Plan Problem List Medical Problems: (1) Abnormal ultrasound of endometrium Status: Acute (2) Acute cholecystitis Status: Acute (3) Bilateral lower extremity edema Status: Acute (4) Dysmenorrhea Status: Acute (5) Nausea Status: Acute (6) Post-nasal drip Status: Acute (7) R11.2 Status: Acute (8) Third trimester Status: Acute (9) Vomiting Status: Acute (10) Vomiting Status: Acute (11) Vomiting affecting , antepartum Status: Acute (12) Vomiting during Status: Acute Surgical Problems: (1) No significant past surgical history Status: Chronic Day#: 1 Continue Routine Care: stable recovery start Fe SO4 daily- Hgb is 9.2 continue rest of care plan
[2016-09-05] MEDS: PRENATAL VITAMIN TAB PO SCH (08:35)
[2016-09-05] MEDS: FERROUS SULFATE 325 MG TAB PO SCH (08:35)
[2016-09-05] MEDS: DOCUSATE SODIUM 100 MG CAP PO SCH ×2 (08:36→20:14)
[2016-09-05 15:40] VITALS: BP 107/72; PULSE 105; TEMP 36.8
[2016-09-05 19:45] VITALS: BP 126/83; PULSE 106; TEMP 36.9
[2016-09-05] MEDS ORDERED: BISACODYL 5 MG TABEC PO SCH (20:00)
[2016-09-06 00:20] VITALS: BP 122/82; PULSE 94; TEMP 36.8; O2SAT 99
[2016-09-06 05:00] VITALS: BP 117/80; PULSE 80; TEMP 36.5; O2SAT 100
[2016-09-06] MEDS: IBUPROFEN 600 MG TAB PO PRN ×2 (06:17→11:19)
--- NOTE | 2016-09-06 07:49 | Discharge Instructions ---
Discharge Instructions Date of Service Sep 06, 2016. Admission Reason for Admission: LABOR Discharge Discharge Diagnosis / Problem: Vaginal delivery Discharge Goals Goal(s): Routine recovery after delivery Activity Recommendations Activity Limitations: per Instructions/Follow-up section . Instructions / Follow-Up Instructions / Follow-Up ACTIVITY RECOMMENDATIONS: * Gradual return to full activity over the next 2-3 weeks. * No lifting - nothing heavier than baby over the next 2-3 weeks. * Do not engage in vigorous exercise, sexual activity or sports until cleared by your physician. * Do not drive or operate any motorized equipment until cleared by your physician. * You may shower/bathe daily. MEDICATIONS: For discomfort or pain, you may use Acetaminophen (Tylenol), Ibuprofen (Advil), or Naproxen (Aleve) following the package directions. For constipation you may use Colace following the package directions. BREAST CARE: If you are not breast feeding: * Wear a supportive bra 24 hours a day for one to two weeks. * Avoid stimulating your breasts and nipples as much as possible during the first few weeks after delivery. * When taking a shower, have the warm water hit your back, not breasts. * When your breasts feel full, apply ice packs. Usually three to four times a day helps ease the discomfort. * Take a mild pain medication (Tylenol / Motrin) when you are uncomfortable. If breast feeding: * Use breast milk to lubricate nipples. Lansinoh cream may be used for sore nipples. You do not need to remove cream prior to breast feeding. If using a different brand of cream, check the label for directions regarding removal of cream prior to nursing. * Wear a supportive bra. * If having problems with breasts or breast feeding, call a content management consultant or your health care provider. EPISIOTOMY CARE: After delivery, if you have an episiotomy (stitches), the following steps will ease discomfort and aid healing. * For the first 24 hours after delivery, place ice packs next to your episiotomy to help reduce swelling. * After the first 24 hour-period, sitz baths, either portable or in the tub, are suggested. A shower with a shower arm sprayed over the episiotomy may be comforting. * Allie care should be done after each voiding and bowel movement. Squirt warm water from a plastic bottle over the perineum (region of the body between the anus and urinary opening) and pat dry. * Use Dermoplast to ease discomfort. Shake container. [place] directly over the episiotomy. Place a Tucks on a clean sanitary pad next to your episiotomy. SPECIAL CARE INSTRUCTIONS: When you are discharged from the hospital, it is important for you to follow the instructions listed below: * During the first week at home, you should be able to care for yourself and your baby. In addition, the usual light household activities are encouraged. * Limit your activities to the way you feel. Do not try to clean the house or move furniture. Be sensible. * If you actively engage in sports and have done so up until the time of your delivery, you may resume these activities as soon as you feel able. This may take up to one month or even longer. Use good judgment. * Continue to take your vitamins for at least six weeks after the of your baby. * Your diet need not be limited unless you were on a special diet before your delivery. Breast-feeding mothers need around 2500 calories per day and at least 64-80 ounces of fluid per day (8 to 10 glasses). * You should eat foods from the four major food groups. Crash diets or fad diets are to be avoided. Eating lean meats, fresh fruits and vegetables, low-fat dairy products, high fiber foods and a regular exercise program, will help you get back to your pre- weight without putting your health at risk. * Constipation is sometimes a problem after delivery. Take a mild laxative as needed. If breast feeding, Milk of Magnesia is acceptable to use. You may use a suppository or Fleets enema if no episiotomy. * A daily shower or tub bath is suggested. Be sure to thoroughly and gently dry the perineum. * A bloody vaginal discharge will usually continue until around four weeks post . A small amount of bleeding may continue for as long as six weeks. Vaginal discharge changes from the bright red bleeding after delivery to pink then brownish and finally yellowish-pink before becoming white and disappearing. * Bleeding may increase with activity. Your first period may come in 4-8 weeks. If you are breast feeding, your period may be delayed even longer. * [place] (sex) can begin whenever both you and your partner feel comfortable and do not have any form of genital infection. It is recommended that you wait at least six weeks for internal and external healing to occur. If you have questions, please talk to your health care practitioner. A condom should be used to prevent infection and . * Foreplay, gentle intercourse and lubrication is very important the first several times to prevent pain. A water-based lubricant such as K-Y jelly or Astroglide may be used. * If you have RH negative blood and your baby is RH positive, you will receive RHOGAM by injection prior to discharge. The nurse will give you a card to keep with you that has the date and place that you received RHOGAM after delivery. * During your care, you had a Rubella screen done to check for the presence of rubella antibodies in your blood. If your test was negative, you will receive a Rubella vaccine prior to discharge. This vaccine may cause a fever, soreness at the injection site and flu-like symptoms. If these symptoms persist, notify your health care practitioner. is not advised for one month after a Rubella vaccine. * Verbalizes understanding of car seat law as reviewed with patient nursing. * Car Seat hand-out given and reviewed with patient by nursing. * Shaken baby information reviewed with patient by nursing. Call you doctor if: * Heavy bleeding (saturating several pads an hour) or passing clots the size of your fist. * A fever >101 degrees F (38.3 degrees C) on two occasions four hours apart and /or chills. * Unusual pain in the pelvic or vaginal areas. * "Baby Blues" lasting longer than two weeks. If you have any questions or concerns, call your health care practitioner at . FOLLOW UP VISIT: * Please call the office at to schedule a 6 week examination. It is important you keep this appointment. It is important for you to make arrangements for either yearly or twice yearly check-ups thereafter. Current Hospital Diet Patient's current hospital diet: Vegetarian Diet Discharge Diet Recommended Diet: Regular Diet Pending Studies Studies pending at discharge: no Medical Emergencies . Who to Call and When: Medical Emergencies: If at any time you feel your situation is an emergency, please call 911 immediately. . Non-Emergent Contact Non-Emergency issues call your: Primary Care Provider . . "Provider Documentation" section prepared by Sharon Paredes. . VTE Core Measure Inpt VTE Proph given/why not?: Treatment not indicated
--- NOTE | 2016-09-06 07:51 | Progress Note ---
Subjective Sep 06, 2016. Subjective conversation w/ patient, physical exam Ambulation: ambulating normally Voiding: no voiding problems Passing Gas: Yes Diet Tolerance: Regular Diet Lochia: Moderate Feeding Type: Bottle Feeding Review of Systems Constitutional: No fever, No chills Respiratory: No cough Cardiac: No chest pain Abdomen: No nausea, No vomiting Objective Vital Signs Date Time Temp Pulse Resp B/P (MAP) Pulse Ox O2 Delivery O2 Flow Rate FiO2 09/06/16 05:00 36.5 80 20 117/80 (92) 100 Room Air 09/06/16 00:20 99 Room Air 09/06/16 00:20 36.8 94 18 122/82 (95) 99 Room Air 09/05/16 19:45 36.9 106 16 126/83 (97) Room Air 09/05/16 15:40 Room Air 09/05/16 15:40 36.8 105 20 107/72 (84) Room Air Physical Exam General Appearance: WELL-APPEARING, NO APPARENT DISTRESS Respiratory/Chest: normal breath sounds, no respiratory distress Cardiovascular: no edema Abdomen: non tender, soft Fundus: Firm Extremities: no calf tenderness Assessment and Plan Problem List Medical Problems: (1) Abnormal ultrasound of endometrium Status: Acute (2) Acute cholecystitis Status: Acute (3) Bilateral lower extremity edema Status: Acute (4) Dysmenorrhea Status: Acute (5) Nausea Status: Acute (6) Post-nasal drip Status: Acute (7) R11.2 Status: Acute (8) Third trimester Status: Acute (9) Vomiting Status: Acute (10) Vomiting Status: Acute (11) Vomiting affecting , antepartum Status: Acute (12) Vomiting during Status: Acute Surgical Problems: (1) No significant past surgical history Status: Chronic Day#: 2 Continue Routine Care: Normal recovery, discharge instructions reviewed.
[2016-09-06] MEDS: PRENATAL VITAMIN TAB PO SCH (08:31)
[2016-09-06] MEDS: FERROUS SULFATE 325 MG TAB PO SCH (08:31)
[2016-09-06] MEDS: DOCUSATE SODIUM 100 MG CAP PO SCH (08:31)
[2016-09-06 08:53] VITALS: BP 124/82; PULSE 100; TEMP 36.6; O2SAT 99
[2016-09-06 11:20] VITALS: BP_DIAS 82; PULSE 100; TEMP 36.6
== END 2016-09-06 11:25 | disposition home or self-care (01) | DRG 775 ==
LOC: C.OPB 00:29 → C.LD 00:30 → C.OPB 06:28 → C.OBG 12:39
PROVIDERS: ADMIT Obstetrics & Gynecology; ATTEND Obstetrics & Gynecology
PROC: 10E0XZZ Delivery of Products of Conception, External Approach (ICD-10-PCS; principal; 2016-09-04)
PROC: 0HQ9XZZ Repair Perineum Skin, External Approach (ICD-10-PCS; principal; 2016-09-04)
DX: O76 Abnormality in fetal heart rate and rhythm complicating labor and delivery (principal); O70.0 First degree perineal laceration during delivery; Z3A.37 37 weeks gestation of pregnancy; Z37.0 Single live birth

== ENCOUNTER → 2016-10-17 | Outpatient (CLI) | payer OTHER ==
[2016-10-17 16:51] LABS: HEMATOCRIT 39.5 % (37-47)
== END | disposition home or self-care (01) ==
LOC: C.LAB1850 14:35
PROVIDERS: ATTEND Obstetrics & Gynecology
DX: O99.019 Anemia complicating pregnancy, unspecified trimester (principal)

== ENCOUNTER 2016-10-27 21:51 | Emergency (ER) | payer OTHER ==
[~2016-10-27] VITALS: Ht 160 cm; Wt 83.6 kg
[2016-10-27 21:53] VITALS: TEMP 36.6; Ht 160 cm; Wt 83.6 kg
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
[2016-10-27] MEDS ORDERED: ACETAMINOPHEN 500 MG TAB PO STA (22:14)
[2016-10-27 23:50] VITALS: BP 128/80; PULSE 68; O2SAT 97
--- NOTE | 2016-10-28 06:48 | DIAGNOSTIC IMAGING REPORT ---
LEFT ANKLE MIN 3 VIEWS ROUTINE CLINICAL HISTORY: Lateral malleolus pain. COMPARISON: None FINDINGS: Alignment of the left ankle is anatomic. No acute fracture is identified. Talar dome is intact. There is an equivocal 6 mm subchondral lucency within the lateral talar dome. IMPRESSION: 1. No acute fracture or dislocation of the left ankle. 2. Possible osteochondral defect of the lateral talar dome. If persistent left ankle pain, an MRI of the left ankle could be obtained. Electronically signed by: Guillaume Ledesma M.D. 10/28/2016 6:46 AM Dictated Date/Time: 10/28/2016 6:42 AM
--- NOTE | 2016-10-28 06:48 | DIAGNOSTIC IMAGING REPORT ---
LEFT FOOT MIN 3 VIEWS ROUTINE CLINICAL HISTORY: Lateral malleolus pain. COMPARISON: None FINDINGS: The tarsometatarsal joints are intact. No acute fracture or osseous lesion is identified on this examination. Joint spaces are preserved. There are no erosions. IMPRESSION: No acute fracture or dislocation of the left foot. Electronically signed by: Guillaume Ledesma M.D. 10/28/2016 6:47 AM Dictated Date/Time: 10/28/2016 6:46 AM
== END 2016-10-28 00:10 | disposition home or self-care (01) ==
LOC: C.EDB 21:52 → C.EDA 10-28 00:10
DX: M25.572 Pain in left ankle and joints of left foot (principal)

== ENCOUNTER 2016-11-17 14:31 | Emergency (ER) | payer OTHER ==
[2016-11-17 14:50] VITALS: TEMP 37.4; Ht 160 cm
--- NOTE | 2016-11-17 16:03 | EMERGENCY ROOM VISIT NOTE ---
History First contact with patient: 15:19 Chief Complaint: ABDOMINAL PAIN Stated Complaint: STOMACH PAIN,UNABLE TO PEE Nursing Triage Summary: pt c/o lower right abdominal pain and nausea 3 hours ago. pt states she is unable to urinate. pt states last times he voided was 0730 this. pt denies vomiting, diarrhea. History of Present Illness The patient is a 20 year old female who presents to the Emergency Room with complaints of right sided flank pain. The pain began after class this morning at 11:30am when she tried to urinate. She states she was unable to urinate and had 10/10, sharp, constant pain radiating from her right flank to groin. She states the pain was as bad as child , she recently had her first child 2 months ago. She states that she is currently menstruating but this is different from that kind of discomfort. She has not vomiting but states she became dizzy from the pain and was almost unable to call the ambulance. She denies any recent burning of urination or history of UTIs. She denies any recent blood in her urine or history of kidney stones. She currently states that her pain is 9/ 10 and radiating from her right flank to right groin. Review of Systems See HPI for pertinent positives and negatives. A total of ten systems were reviewed and were otherwise negative. Constitutional: No fever, No chills, No fatigue Respiratory: No cough, No sputum, No shortness of breath Cardiovascular: No chest pain, No palpitations Abdomen: No pain, No nausea, No vomiting, No diarrhea, No constipation Genitourinary - Female: + urinary retention, + problem reported (Right sided flank pain), No dysuria, No urinary frequency, No urinary incontinence, No hematuria Past Medical/Surgical History Medical Problems: (1) Chronic Sinusitis Nos (2) Deviated Nasal Septum (3) labor (4) Nasal Polyp Nos (5) with 18 completed weeks gestation (6) Vaginal bleeding during , antepartum Surgical Problems: (1) No significant past surgical history Family History FH: diabetes mellitus Social History Smoking Status: Never Smoker Alcohol Use: none Drug Use: none Marital Status: Housing Status: lives with significant other Occupation Status: [employer] student Current/Historical Medications No Active Prescriptions or Reported Meds Physical Exam Vital Signs Date Time Temp Pulse Resp B/P (MAP) Pulse Ox O2 Delivery O2 Flow Rate FiO2 11/17/16 21:26 110 18 131/89 100 Room Air 11/17/16 18:53 101 16 106/63 99 Room Air 11/17/16 17:21 103 18 126/88 100 Room Air 11/17/16 14:50 37.4 109 20 133/88 99 Room Air Physical Exam GENERAL: Awake, alert, well-appearing, in mild distress HENT: Normocephalic, atraumatic. Oropharynx unremarkable. EYES: Normal conjunctiva. Sclera non-icteric. NECK: Supple. No nuchal rigidity. RESPIRATORY: Clear to auscultation. CARDIAC: Regular rate, normal rhythm. Extremities warm and well perfused. Pulses equal. ABDOMEN: Soft, non-distended. No rebound or guarding. No masses. Bladder nondistended. Suprapubic tenderness RECTAL: Deferred. MUSCULOSKELETAL: Chest examination reveals no tenderness. The back is symmetrical on inspection without obvious abnormality. There is no CVA tenderness to palpation. LOWER EXTREMITIES: Calves are equal size bilaterally and non-tender. No edema. No discoloration. NEURO: Normal sensorium. No sensory or motor deficits noted. SKIN: No rash or jaundice noted. Medical Decision & Procedures Laboratory Results 11/17/16 17:22 Red Blood Count 5.19, Mean Corpuscular Volume 73.8, Mean Corpuscular Hemoglobin 23.3, Mean Corpuscular Hemoglobin Concent 31.6, Mean Platelet Volume 10.9, Neutrophils (%) (Auto) 76.4, Lymphocytes (%) (Auto) 17.1, Monocytes (%) (Auto) 5.4, Eosinophils (%) (Auto) 0.6, Basophils (%) (Auto) 0.2, Neutrophils # (Auto) 7.80, Lymphocytes # (Auto) 1.74, Monocytes # (Auto) 0.55, Eosinophils # (Auto) 0.06, Basophils # (Auto) 0.02 11/17/16 17:22 Test 11/17/16 16:15 11/17/16 17:22 Urine Color YELLOW Urine Appearance CLOUDY (CLEAR) Urine pH 7.5 (4.5-7.5) Urine Specific [place] 1.021 (1.000-1.030) Urine Protein NEG (NEG) Urine Glucose (UA) NEG (NEG) Urine Ketones NEG (NEG) Urine Occult Blood 3+ (NEG) Urine Nitrite NEG (NEG) Urine Bilirubin NEG (NEG) Urine Urobilinogen NEG (NEG) Urine Leukocyte Esterase TRACE (NEG) Urine WBC (Auto) 5-10 /hpf (0-5) Urine RBC (Auto) >30 /hpf (0-4) Urine Hyaline Casts (Auto) 1-5 /lpf (0-5) Urine Epithelial Cells (Auto) 20-30 /lpf (0-5) Urine Bacteria (Auto) NEG (NEG) Urine Test NEG (NEG) White Blood Count 10.20 K/uL (4.8-10.8) Red Blood Count 5.19 M/uL (4.2-5.4) Hemoglobin 12.1 g/dL (12.0-16.0) Hematocrit 38.3 % (37-47) Mean Corpuscular Volume 73.8 fL (80-100) Mean Corpuscular Hemoglobin 23.3 pg (25-34) Mean Corpuscular Hemoglobin Concent 31.6 g/dl (32-36) Platelet Count 301 K/uL (130-400) Mean Platelet Volume 10.9 fL (7.4-10.4) Neutrophils (%) (Auto) 76.4 % Lymphocytes (%) (Auto) 17.1 % Monocytes (%) (Auto) 5.4 % Eosinophils (%) (Auto) 0.6 % Basophils (%) (Auto) 0.2 % Neutrophils # (Auto) 7.80 K/uL (1.4-6.5) Lymphocytes # (Auto) 1.74 K/uL (1.2-3.4) Monocytes # (Auto) 0.55 K/uL (0.11-0.59) Eosinophils # (Auto) 0.06 K/uL (0-0.5) Basophils # (Auto) 0.02 K/uL (0-0.2) RDW Standard Deviation 47.0 fL (36.4-46.3) RDW Coefficient of Variation 17.4 % (11.5-14.5) Immature Granulocyte % (Auto) 0.3 % Immature Granulocyte # (Auto) 0.03 K/uL (0.00-0.02) Anion Gap 8.0 mmol/L (3-11) Estimated GFR () 146.1 Estimated GFR (Non- 126.0 BUN/Creatinine Ratio 8.9 (10-20) Calcium Level 8.7 mg/dl (8.5-10.1) Total Bilirubin 0.3 mg/dl (0.2-1) Direct Bilirubin < 0.1 mg/dl (0-0.2) Aspartate Amino Transf (AST/SGOT) 18 U/L (15-37) Alanine Aminotransferase (ALT/SGPT) 36 U/L (12-78) Alkaline Phosphatase 78 U/L (45-117) Total Protein 7.3 gm/dl (6.4-8.2) Albumin 3.5 gm/dl (3.4-5.0) Lipase 128 U/L (73-393) Medications Administered Medications (Trade) Dose Ordered Sig/Naomi Route Start Time Stop Time Status Last Admin Dose Admin Ketorolac Tromethamine (Toradol Inj) 10 mg ONE STAT IV. 11/17/16 17:30 11/17/16 17:31 DC 11/17/16 17:30 10 MG ED Course Patient is a 20 year old female that presents with a 4 hour history of right sided flank pain Lab/Imaging: - Right sided abdominal ultrasound - CBC - BMP - Blood HCG - Urinalysis - Bladder scan revealed 390cc Patient Catheterized --> changed UA and Beta-Hcg to urine cath samples Patient complained of continued 6/10 abdominal pain --> Treated with 10mg IV Toradol Patient has continued abdominal discomfort despite catheterization and pain medication Renal US showed no stones in the kidneys or ureter and patient continues to have suprapubic pain Abdominal CT ordered --> Non-obstructing left renal calculus Repeat US showed 100cc of retained urine Attempted to recatheterize patient to discharge home with Martin catheter although the patient requested to be discharged home without a Martin Plan to discharge patient home with follow up with Urology as outpatient Medical Decision Patient is a 20 year old female that presents with a 4 hour history of right sided flank pain Etiologies such as nephrolithiasis, ureterolithiasis, renal colic, appendicitis , diverticulitis, mesenteric ischemia, aortic pathology, infections, inflammatory bowel disease, PUD, biliary pathology, UTI, as well as others were entertained. The patient was initially worked up for urinary retention and catheterized in the ED with initial relief. Workup including CT scan and lab workup showed no evidence of infection or ureteral calculus or obstruction. The patient had the catheter removed but continued having urinary retention with a bladder scan of 100cc. The patient refused to have a Martin placed on discharge and that she would follow up with Urology tomorrow morning. Impression Primary Impression: Bilateral flank mass Additional Impression: Urinary retention Departure Information Dispostion Home / Self-Care Condition GOOD Prescriptions No Active Prescriptions or Reported Meds Referrals No Doctor, Assigned (PCP) Patient Instructions My [facility] Resident Tracking Resident Involvement: Resident Care Provided Care Provided: Adult ED Problem Qualifiers
[2016-11-17 16:44] LABS: URINE APPEARANCE CLOUDY (CLEAR); URINE BILIRUBIN NEG (NEG); URINE COLOR YELLOW; URINE EPITHELIAL CELL AUTO 20-30 /lpf (0-5); URINE NITRITE NEG (NEG); URINE PH 7.5 (4.5-7.5); URINE SPECIFIC GRAVITY 1.021 (1.000-1.030); UROBILINOGEN NEG (NEG)
[2016-11-17 16:45] LABS: MANUAL MICROSCOPIC REQUIRED? NO; REVIEW REQ? NO
[2016-11-17] MEDS ORDERED: KETOROLAC TROMETHAMINE 15 MG/ML VIAL IV. STA (17:30)
[2016-11-17 17:35] LABS: BASO % 0.2 %; BASO ABS # 0.02 K/uL (0-0.2); COMPLETE YES; EOS % 0.6 %; HEMATOCRIT 38.3 % (37-47); IG% 0.3 %; LYMPH % 17.1 %; LYMPH ABS # 1.74 K/uL (1.2-3.4); MEAN CELL VOLUME 73.8 fL (80-100); MEAN CORPUSCULAR HEMOGLOBIN 23.3 pg (25-34); MEAN CORPUSCULAR HGB CONC 31.6 g/dl (32-36); MEAN PLATELET VOLUME 10.9 fL (7.4-10.4); MONO % 5.4 %; NEUT % 76.4 %; PLATELET COUNT 301 K/uL (130-400); RED BLOOD COUNT 5.19 M/uL (4.2-5.4)
[2016-11-17] MEDS ORDERED: KETOROLAC TROMETHAMINE 30 MG/ML VIAL ONE (17:51)
[2016-11-17 17:52] LABS: BLOOD UREA NITROGEN 6 mg/dl (7-18); BUN/CREATININE RATIO 8.9 (10-20); CALCIUM 8.7 mg/dl (8.5-10.1); CARBON DIOXIDE 23 mmol/L (21-32); CHLORIDE 108 mmol/L (98-107); CREATININE 0.65 mg/dl (0.60-1.20); GLUCOSE 89 mg/dl (70-99); POTASSIUM 3.7 mmol/L (3.5-5.1); SODIUM 139 mmol/L (136-145)
--- NOTE | 2016-11-17 18:20 | DIAGNOSTIC IMAGING REPORT ---
EXAMINATION: RENAL ULTRASOUND CLINICAL HISTORY: Right sided flank pain, concern for kidney stone COMPARISON STUDY: None FINDINGS: The right kidney measures 10.7 cm. The left kidney measures 11.2 cm. There is no evidence of hydronephrosis. There are no renal masses. The bladder was empty at the time of scanning. There was an indwelling Martin catheter. IMPRESSION : 1. No renal abnormalities identified. Electronically signed by: Adi Michelle M.D. 11/17/2016 6:19 PM Dictated Date/Time: 11/17/2016 6:18 PM
--- NOTE | 2016-11-17 19:14 | DIAGNOSTIC IMAGING REPORT ---
CT SCAN OF THE ABDOMEN AND PELVIS WITHOUT CONTRAST CLINICAL HISTORY: Right-sided abdominal pain COMPARISON STUDY: 11/02/2015 TECHNIQUE: CT scan of the abdomen and pelvis was performed from the lung bases to the proximal femurs. Images are reviewed in the axial, sagittal, and coronal planes. IV contrast was not administered for this examination. A dose lowering technique was utilized adhering to the principles of ALARA. CT DOSE: 582.92 mGy.cm FINDINGS: Lower chest: The heart is normal in size and configuration, without pericardial effusion. The lung bases and pleural spaces are clear. Liver: The unenhanced liver is normal in size, contour, and attenuation. There is no intrahepatic biliary ductal dilatation. Gallbladder: Surgically absent Spleen: Normal in size and attenuation. Pancreas: Unremarkable. Adrenal glands: Unremarkable. Kidneys: There is a punctate nonobstructing lower pole left renal calculus. No ureteral or bladder calculi are visualized Bowel: There are no transition zones indicate bowel obstruction. There is no acute diverticulitis. The appendix appears normal. Peritoneum: There is no intraperitoneal free air or abdominal ascites. Vasculature: The abdominal aorta is normal in course and caliber. Adenopathy: None. Pelvic viscera: There is a 28 mm right ovarian follicle. There is an indwelling Martin catheter. Skeletal structures: No destructive osseous lesions are seen. IMPRESSION: 1. No evidence of bowel obstruction. No evidence of free air 2. Normal appendix. No evidence of acute diverticulitis 3. 28 mm right ovarian follicle 4. Punctate nonobstructing left renal calculus. No ureteral calculi identified Electronically signed by: Adi Michelle M.D. 11/17/2016 7:12 PM Dictated Date/Time: 11/17/2016 7:08 PM
[2016-11-17 19:22] LABS: ALKALINE PHOSPHATASE 78 U/L (45-117); ALT/SGPT 36 U/L (12-78); AST/SGOT 18 U/L (15-37)
[2016-11-17 21:26] VITALS: BP 131/89; PULSE 110; O2SAT 100
--- NOTE | 2016-11-17 21:58 | EMERGENCY ROOM VISIT NOTE ---
History Report prepared by Retaibuzair: Benigno Potts Under the Supervision of: Dr. Marito Delatorre M.D. First contact with patient: 15:19 Chief Complaint: ABDOMINAL PAIN Stated Complaint: STOMACH PAIN,UNABLE TO PEE Nursing Triage Summary: pt c/o lower right abdominal pain and nausea 3 hours ago. pt states she is unable to urinate. pt states last times he voided was 0730 this. pt denies vomiting, diarrhea. History of Present Illness The patient is a 20 year old female who presents to the Emergency Room with complaints of constant bilateral sided flank pain since 1130. She rates her discomfort as a 10/10 in severity. The patient states that she came home from class this afternoon and tried to urinate. She states that she was unable to urinate and experienced a sharp painful sensation radiating from her flank to her groin. The patient reports that the pain was "as bad as child ". She states that she was doubled up on the floor and was unable to call an ambulance. She reports that she tried to urinate twice since and has not been successful. The patient reports that she had her first child two months ago. She admits to a history of gallbladder stones, but denies a history of UTI and kidney stones. The patient denies any fevers, chills, hematuria, burning sensation while urinating, and a possible . Source of History: patient Onset: 1130 Position: other (right flank) Symptom Intensity: 10/10 Quality: sharp Timing: constant Associated Symptoms: No fevers, No chills Review of Systems See HPI for pertinent positives & negatives. A total of 10 systems reviewed and were otherwise negative. Past Medical & Surgical Medical Problems: (1) Chronic Sinusitis Nos (2) Deviated Nasal Septum (3) labor (4) Nasal Polyp Nos (5) with 18 completed weeks gestation (6) Vaginal bleeding during , antepartum Surgical Problems: (1) No significant past surgical history Family History FH: diabetes mellitus Social History Smoking Status: Never Smoker Alcohol Use: none Drug Use: none Marital Status: Housing Status: lives with significant other Occupation Status: [employer] student Current/Historical Medications No Active Prescriptions or Reported Meds Allergies Coded Allergies: No Known Allergies (Unverified , 09/05/16) Physical Exam Vital Signs Date Time Temp Pulse Resp B/P (MAP) Pulse Ox O2 Delivery O2 Flow Rate FiO2 11/17/16 21:26 110 18 131/89 100 Room Air 11/17/16 18:53 101 16 106/63 99 Room Air 11/17/16 17:21 103 18 126/88 100 Room Air 11/17/16 14:50 37.4 109 20 133/88 99 Room Air Physical Exam Constitutional: Vital signs reviewed. Eyes: Pupils are equal round reactive to light. Conjunctiva are noninjected. ENT: Pharynx is clear without erythema or exudate. Mucous membranes are moist. Neck supple without meningeal signs. Respiratory: Clear to auscultation bilaterally. Breath sounds are equal bilaterally. Cardiovascular: Regular rate and rhythm. No rubs or gallops. GI: Soft, nondistended and suprapubic tenderness. Bowel sounds are present. Musculoskeletal: No peripheral edema. Integumentary: No cyanosis. Neurological: The patient is awake and alert. No focal deficits. Psychiatric: Normal affect. Medical Decision & Procedures ER Provider Diagnostic Interpretation: Radiology results as stated below per my review and the radiologist's interpretation: EXAMINATION: RENAL ULTRASOUND CLINICAL HISTORY: Right sided flank pain, concern for kidney stone COMPARISON STUDY: None FINDINGS: The right kidney measures 10.7 cm. The left kidney measures 11.2 cm. There is no evidence of hydronephrosis. There are no renal masses. The bladder was empty at the time of scanning. There was an indwelling Martin catheter. IMPRESSION : 1. No renal abnormalities identified. Electronically signed by: Adi Michelle M.D. 11/17/2016 6:19 PM Dictated Date/Time: 11/17/2016 6:[address] SCAN OF THE ABDOMEN AND PELVIS WITHOUT CONTRAST CLINICAL HISTORY: Right-sided abdominal pain COMPARISON STUDY: 11/02/2015 TECHNIQUE: CT scan of the abdomen and pelvis was performed from the lung bases to the proximal femurs. Images are reviewed in the axial, sagittal, and coronal planes. IV contrast was not administered for this examination. A dose lowering technique was utilized adhering to the principles of ALARA. CT DOSE: 582.92 mGy.cm FINDINGS: Lower chest: The heart is normal in size and configuration, without pericardial effusion. The lung bases and pleural spaces are clear. Liver: The unenhanced liver is normal in size, contour, and attenuation. There is no intrahepatic biliary ductal dilatation. Gallbladder: Surgically absent Spleen: Normal in size and attenuation. Pancreas: Unremarkable. Adrenal glands: Unremarkable. Kidneys: There is a punctate nonobstructing lower pole left renal calculus. No ureteral or bladder calculi are visualized Bowel: There are no transition zones indicate bowel obstruction. There is no acute diverticulitis. The appendix appears normal. Peritoneum: There is no intraperitoneal free air or abdominal ascites. Vasculature: The abdominal aorta is normal in course and caliber. Adenopathy: None. Pelvic viscera: There is a 28 mm right ovarian follicle. There is an indwelling Martin catheter. Skeletal structures: No destructive osseous lesions are seen. IMPRESSION: 1. No evidence of bowel obstruction. No evidence of free air 2. Normal appendix. No evidence of acute diverticulitis 3. 28 mm right ovarian follicle 4. Punctate nonobstructing left renal calculus. No ureteral calculi identified Electronically signed by: Adi Michelle M.D. 11/17/2016 7:12 PM Dictated Date/Time: 11/17/2016 7:08 PM Laboratory Results 11/17/16 17:22 Red Blood Count 5.19, Mean Corpuscular Volume 73.8, Mean Corpuscular Hemoglobin 23.3, Mean Corpuscular Hemoglobin Concent 31.6, Mean Platelet Volume 10.9, Neutrophils (%) (Auto) 76.4, Lymphocytes (%) (Auto) 17.1, Monocytes (%) (Auto) 5.4, Eosinophils (%) (Auto) 0.6, Basophils (%) (Auto) 0.2, Neutrophils # (Auto) 7.80, Lymphocytes # (Auto) 1.74, Monocytes # (Auto) 0.55, Eosinophils # (Auto) 0.06, Basophils # (Auto) 0.02 11/17/16 17:22 Test 11/17/16 16:15 11/17/16 17:22 Urine Color YELLOW Urine Appearance CLOUDY (CLEAR) Urine pH 7.5 (4.5-7.5) Urine Specific [place] 1.021 (1.000-1.030) Urine Protein NEG (NEG) Urine Glucose (UA) NEG (NEG) Urine Ketones NEG (NEG) Urine Occult Blood 3+ (NEG) Urine Nitrite NEG (NEG) Urine Bilirubin NEG (NEG) Urine Urobilinogen NEG (NEG) Urine Leukocyte Esterase TRACE (NEG) Urine WBC (Auto) 5-10 /hpf (0-5) Urine RBC (Auto) >30 /hpf (0-4) Urine Hyaline Casts (Auto) 1-5 /lpf (0-5) Urine Epithelial Cells (Auto) 20-30 /lpf (0-5) Urine Bacteria (Auto) NEG (NEG) Urine Test NEG (NEG) White Blood Count 10.20 K/uL (4.8-10.8) Red Blood Count 5.19 M/uL (4.2-5.4) Hemoglobin 12.1 g/dL (12.0-16.0) Hematocrit 38.3 % (37-47) Mean Corpuscular Volume 73.8 fL (80-100) Mean Corpuscular Hemoglobin 23.3 pg (25-34) Mean Corpuscular Hemoglobin Concent 31.6 g/dl (32-36) Platelet Count 301 K/uL (130-400) Mean Platelet Volume 10.9 fL (7.4-10.4) Neutrophils (%) (Auto) 76.4 % Lymphocytes (%) (Auto) 17.1 % Monocytes (%) (Auto) 5.4 % Eosinophils (%) (Auto) 0.6 % Basophils (%) (Auto) 0.2 % Neutrophils # (Auto) 7.80 K/uL (1.4-6.5) Lymphocytes # (Auto) 1.74 K/uL (1.2-3.4) Monocytes # (Auto) 0.55 K/uL (0.11-0.59) Eosinophils # (Auto) 0.06 K/uL (0-0.5) Basophils # (Auto) 0.02 K/uL (0-0.2) RDW Standard Deviation 47.0 fL (36.4-46.3) RDW Coefficient of Variation 17.4 % (11.5-14.5) Immature Granulocyte % (Auto) 0.3 % Immature Granulocyte # (Auto) 0.03 K/uL (0.00-0.02) Anion Gap 8.0 mmol/L (3-11) Estimated GFR () 146.1 Estimated GFR (Non- 126.0 BUN/Creatinine Ratio 8.9 (10-20) Calcium Level 8.7 mg/dl (8.5-10.1) Total Bilirubin 0.3 mg/dl (0.2-1) Direct Bilirubin < 0.1 mg/dl (0-0.2) Aspartate Amino Transf (AST/SGOT) 18 U/L (15-37) Alanine Aminotransferase (ALT/SGPT) 36 U/L (12-78) Alkaline Phosphatase 78 U/L (45-117) Total Protein 7.3 gm/dl (6.4-8.2) Albumin 3.5 gm/dl (3.4-5.0) Lipase 128 U/L (73-393) Laboratory results as reviewed by me. Medications Administered Medications (Trade) Dose Ordered Sig/Naomi Route Start Time Stop Time Status Last Admin Dose Admin Ketorolac Tromethamine (Toradol Inj) 10 mg ONE STAT IV. 11/17/16 17:30 11/17/16 17:31 DC 11/17/16 17:30 10 MG ED Course 1556: The patient was evaluated in room A10. A complete history and physical exam was performed. 1750: Ordered Toradol Injection 30 mg IV. 1844: I reevaluated the patient and she is experiencing tenderness in the suprapubic region and bilateral flank areas. 2129: The resident reevaluated the patient and she would like to leave without a catheter. Her bladder showed 100 ccs of fluid. He discussed the patient's results and treatment plan, which she agrees to. The patient is ready for discharge. Medical Decision This is a 20-year-old female who presents with flank pain and difficulty urinating. Differential diagnosis includes urinary retention, kidney stone, UTI , pyelonephritis, mass. I did perform a limited focused review of portions of the patient's old chart on the electronic medical record. The patient has had a recent visit on October 27 for foot pain. I did evaluate the patient as noted above. IV access was established. Bladder scan was performed and the patient had almost 300 mL of urine. She was unable to urinate and so Martin catheter was placed. I did order and personally review the patient's urinalysis as described above. I did order and review the patient 's blood work as noted in the electronic medical record. Renal function is normal. . Renal ultrasound was performed and was unremarkable. On reassessment the patient is having continued pain. She was given Toradol IV. I did order a CT of the abdomen and pelvis. I did review the images myself as well as the radiology report as described above. CT was unremarkable. The patient wanted the Martin catheter removed. She was unable to urinate afterwards. A bladder scan was performed and she did have about 100 mL of urine. She refused Martin cath replacement. She was advised follow up with urology and [facility] regular doctor. She was told to return for any worsening symptoms. She was discharged in good condition. Resident Physician Supervision Note: I did evaluate and examine this patient myself. I did guide management for the patient. I agree with the resident's (Dr. Salomon) assessment as discussed. Please see the resident's dictation for further details. Medication Reconcilliation Current Medication List: was personally reviewed by me Blood Pressure Screening Patient's blood pressure: Elevated blood pressure Impression Primary Impression: Bilateral flank pain Additional Impression: Urinary retention Scribe Attestation The scribe's documentation has been prepared under my direct and personally reviewed by me in its entirety. I confirm that the note above accurately reflects all work, treatment, procedures, and medical decision making performed by me. Departure Information Dispostion Home / Self-Care Prescriptions No Active Prescriptions or Reported Meds Referrals No Doctor, Assigned (PCP) Forms HOME CARE DOCUMENTATION FORM, IMPORTANT VISIT INFORMATION Patient Instructions My [facility] Additional Instructions You have been examined and treated today on an emergency basis only. This is not a substitute for, or an effort to provide, complete comprehensive medical care. It is impossible to recognize and treat all injuries or illnesses in a single emergency department visit. It is therefore important that you follow up closely with your physician. Call as soon as possible for an appointment with Dr. Lee. Return for worsening symptoms or if you develop fever, vomiting, abdominal pain, back pain, or any other concerning symptoms. You were treating in the hospital for urinary retention with pain medication ( Toradol) and a urinary catheter. It is important that you follow up with Urology tomorrow and call the office of Dr. Lee with the information provided. Problem Qualifiers
== END 2016-11-17 21:55 | disposition home or self-care (01) ==
LOC: C.EDB 14:32 → C.EDA 21:55
DX: R22.2 Localized swelling, mass and lump, trunk (principal); R33.9 Retention of urine, unspecified; R42 Dizziness and giddiness; Z83.3 Family history of diabetes mellitus

== ENCOUNTER 2016-11-18 10:48 | Emergency (ER) | payer OTHER ==
[~2016-11-18] VITALS: Ht 157.5 cm; Wt 83.3 kg
[2016-11-18 10:53] VITALS: TEMP 37.4; Ht 157.5 cm; Wt 83.3 kg
[2016-11-18] MEDS ORDERED: SODIUM CHLORIDE 0.9% 1000ML 1,000 ML IV STA (11:20)
--- NOTE | 2016-11-18 11:46 | EMERGENCY ROOM VISIT NOTE ---
History First contact with patient: 11:07 Chief Complaint: UNABLE TO VOID Stated Complaint: NOT ABLE TO URINATE Nursing Triage Summary: "I am not able to urinate. I was here for the same thing before and I haven't yet." per pt. Pt 2 months History of Present Illness The patient is a 20 year old female who presents to the Emergency Room with complaints of inability to urinate for 2 days. The patient is currently 2 months , and had a normal vaginal delivery. She was seen in the emergency department yesterday for the same complaints. At that time, she had lab work, a right-sided abdominal ultrasound, and CT scan performed. CT scan was significant only for a nonobstructing renal calculus on the left. The patient states she was offered discharge with a Martin catheter yesterday, but declined. She states when she went home, she drank 2 very small classes of water last night, but has had nothing to eat or drink today. The patient states she is having a slight amount of suprapubic pain, but denies any back pain, fever, chills, nausea, vomiting. She states she has not moved her bowels for 2 days, however has also had a significantly decreased appetite. The patient is scheduled for a urology appointment next Thursday. She is currently menstruating and has a heavy flow. She denies any chest pain, dyspnea, headache , dizziness. She was able to void approximately 50 mL upon arrival to the emergency department. She states she did not void last night, but did void approximately 50 mL this morning at home. He states the urine does appear very bloody. Review of Systems A complete 10 point review of systems was reviewed with the patient with pertinent positives and negatives as per history of present illness. All else were negative. Past Medical/Surgical History Medical Problems: (1) Chronic Sinusitis Nos (2) Deviated Nasal Septum (3) labor (4) Nasal Polyp Nos (5) with 18 completed weeks gestation (6) Vaginal bleeding during , antepartum Surgical Problems: (1) No significant past surgical history Family History FH: diabetes mellitus Social History Smoking Status: Never Smoker Alcohol Use: none Drug Use: none Marital Status: Housing Status: lives with significant other Occupation Status: [employer] Current/Historical Medications No Active Prescriptions or Reported Meds Physical Exam Vital Signs Date Time Temp Pulse Resp B/P (MAP) Pulse Ox O2 Delivery O2 Flow Rate FiO2 11/18/16 14:53 88 16 123/77 99 11/18/16 12:54 87 18 106/72 100 11/18/16 10:53 37.4 102 16 114/88 99 Room Air Physical Exam VITALS: Vitals are noted on the nurse's note and reviewed by myself. Vital signs stable. GENERAL: This is a 20-year-old female, in no acute distress, nondiaphoretic, well-developed well-nourished. SKIN: The skin was without rashes, erythema, edema, or bruising. There is no tenting of the skin. Capillary reflex less than 2 seconds. HEAD: Normocephalic atraumatic. EARS: External auditory canals clear, tympanic membranes pearly márquez without erythema or effusion bilaterally. EYES: Pupils equal round and reactive to light and accommodation. Conjunctivae without injection, sclerae without icterus. Extraocular movements intact. NOSE: Patent, turbinates without inflammation or discharge. No sinus tenderness. MOUTH: Mucous membranes moist. Tonsils are not enlarged. Pharynx without erythema or exudate. Uvula midline. Airway patent. Tongue does not deviate. NECK: Supple without nuchal rigidity. No lymphadenopathy. No thyromegaly. Cervical spine is nontender. No JVD. HEART: Regular rate and rhythm without murmurs gallops or rubs. LUNGS: Clear to auscultation bilaterally without wheezes, rales or rhonchi. No dullness to percussion. No retractions or accessory muscle use. ABDOMEN: Positive bowel sounds x 4. Normal tympanic percussion. There are mild tenderness suprapubically and in the right and left lower quadrants. Otherwise, the abdomen was soft, nontender, without masses or organomegaly. Pendleton sign negative. No guarding or rebound tenderness. MUSCULOSKELETAL: No muscle atrophy, erythema, or edema noted. Full range of motion without joint tenderness in all extremities. No tenderness to palpation. Normal gait. Strength 5/5 throughout. NEURO: Patient was alert and oriented to person place and time. Normal sensation to light and sharp touch. Deep tendon reflexes 2+ throughout. No focal neurological deficits. Medical Decision & Procedures ER Provider Diagnostic Interpretation: Serum test was negative. CMP did not show significant electrolyte abnormalities, renal or hepatic function abnormalities. CBC was without leukocytosis, thrombocytopenia. The patient is extremely mildly anemic with a hemoglobin of 11.1. Laboratory Results 11/18/16 11:50 Red Blood Count 5.07, Mean Corpuscular Volume 74.8, Mean Corpuscular Hemoglobin 21.9, Mean Corpuscular Hemoglobin Concent 29.3, Mean Platelet Volume 10.6, Neutrophils (%) (Auto) 56.9, Lymphocytes (%) (Auto) 34.1, Monocytes (%) (Auto) 6.5, Eosinophils (%) (Auto) 1.9, Basophils (%) (Auto) 0.3, Neutrophils # (Auto) 3.60, Lymphocytes # (Auto) 2.16, Monocytes # (Auto) 0.41, Eosinophils # (Auto) 0.12, Basophils # (Auto) 0.02 11/18/16 11:50 Test 11/18/16 11:50 11/18/16 13:05 White Blood Count 6.33 K/uL (4.8-10.8) Red Blood Count 5.07 M/uL (4.2-5.4) Hemoglobin 11.1 g/dL (12.0-16.0) Hematocrit 37.9 % (37-47) Mean Corpuscular Volume 74.8 fL (80-100) Mean Corpuscular Hemoglobin 21.9 pg (25-34) Mean Corpuscular Hemoglobin Concent 29.3 g/dl (32-36) Platelet Count 319 K/uL (130-400) Mean Platelet Volume 10.6 fL (7.4-10.4) Neutrophils (%) (Auto) 56.9 % Lymphocytes (%) (Auto) 34.1 % Monocytes (%) (Auto) 6.5 % Eosinophils (%) (Auto) 1.9 % Basophils (%) (Auto) 0.3 % Neutrophils # (Auto) 3.60 K/uL (1.4-6.5) Lymphocytes # (Auto) 2.16 K/uL (1.2-3.4) Monocytes # (Auto) 0.41 K/uL (0.11-0.59) Eosinophils # (Auto) 0.12 K/uL (0-0.5) Basophils # (Auto) 0.02 K/uL (0-0.2) RDW Standard Deviation 47.7 fL (36.4-46.3) RDW Coefficient of Variation 17.6 % (11.5-14.5) Immature Granulocyte % (Auto) 0.3 % Immature Granulocyte # (Auto) 0.02 K/uL (0.00-0.02) Toxic Granulation 1+ Anisocytosis PRESENT Microcytosis PRESENT Anion Gap 8.0 mmol/L (3-11) Est Creatinine Clear Calc Drug Dose 138.0 ml/min Estimated GFR () 146.8 Estimated GFR (Non- 126.7 BUN/Creatinine Ratio 12.0 (10-20) Calcium Level 8.6 mg/dl (8.5-10.1) Total Bilirubin 0.3 mg/dl (0.2-1) Aspartate Amino Transf (AST/SGOT) 14 U/L (15-37) Alanine Aminotransferase (ALT/SGPT) 31 U/L (12-78) Alkaline Phosphatase 79 U/L (45-117) Total Protein 7.5 gm/dl (6.4-8.2) Albumin 3.5 gm/dl (3.4-5.0) Globulin 4.0 gm/dl (2.5-4.0) Albumin/Globulin Ratio 0.9 (0.9-2) Human Chorionic Gonadotropin, Qual NEG (NEG) Urine Color RED Urine Appearance CLEAR (CLEAR) Urine pH 6.5 (4.5-7.5) Urine Specific [place] 1.015 (1.000-1.030) Urine Protein 1+ (NEG) Urine Glucose (UA) NEG (NEG) Urine Ketones TRACE (NEG) Urine Occult Blood 3+ (NEG) Urine Nitrite NEG (NEG) Urine Bilirubin NEG (NEG) Urine Urobilinogen NEG (NEG) Urine Leukocyte Esterase NEG (NEG) Urine RBC >30 /hpf (0-4) Urine WBC 5-10 /hpf (0-5) Urine Epithelial Cells 5-10 /lpf (0-5) Urine Bacteria NEG (NEG) Medications Administered Medications (Trade) Dose Ordered Sig/Naomi Route Start Time Stop Time Status Last Admin Dose Admin Sodium Chloride 1,000 ml @ 999 mls/hr Q1H1M STAT IV 11/18/16 11:20 11/18/16 12:20 DC 11/18/16 12:01 999 MLS/HR Medical Decision The patient was seen and evaluated as above. She presented approximately 24 hours after previous visit to the emergency department complaining of urinary retention. The patient states last night when she went home she drank 2 small glasses of water, but has not continued to attempt to maintain hydration. She did sleep yesterday without having a Martin catheter placed. The patient states she was informed from the caseworkers that the soonest urology was able to see her was next Thursday. She became concerned because she was only able to urinate a small amount this morning. She states the urine was very bloody, however she is also on her period. Upon arrival, the patient was able to urinate approximately 50 mL. The nurse did bladder scan the patient, and noted approximately 21 mL left. Based on the patient's history, basic labs were drawn. I did review the workup which was performed yesterday in the emergency department. This was significant only for a nonobstructing left renal calculus noted on CT scan. Ultrasound of the right flank was negative yesterday. I decided to hydrate the patient with fluids and have her attempt to urinate. After 1 L of normal saline solution, the patient was able to urinate approximately 150 mL. A subsequent bladder scan showed only 18 mL left in the bladder. The patient states she has also been experiencing some constipation. She has not taken anything for the constipation. I did order some Miralax, but prior to being able to take it, the patient states she was successful at moving her bowels. I do feel that the patient is not experiencing significant urinary retention, any suspect her symptoms are related to dehydration. I encouraged the patient to keep her appointment with urology, however I advised her to stay extremely well-hydrated. The patient was given discharged instructions and encouraged to return to the emergency department for worsening urinary retention, blood in her urine, back pain, fever, chills, or other associated symptoms. Differential diagnosis includes urinary retention, UTI, hydronephrosis, pyelonephritis, renal calculus, , malignancy, and others. Medication Reconcilliation Current Medication List: was personally reviewed by me Blood Pressure Screening Patient's blood pressure: Normal blood pressure Impression Primary Impression: Urinary hesitancy Additional Impression: Constipation Departure Information Dispostion Home / Self-Care Condition GOOD Prescriptions No Active Prescriptions or Reported Meds Referrals No Doctor, Assigned (PCP) Forms WORK / SCHOOL INSTRUCTIONS, HOME CARE DOCUMENTATION FORM, IMPORTANT VISIT INFORMATION Patient Instructions ED Constipation, ED Retention Urinary Female, My [facility] Additional Instructions You have been treated in the Emergency Department today for Constipation and urinary retention. Laboratory results and imaging studies do not indicate any emergent issues warranting surgery or admission. Bladder scanning after you urinated after IV fluids did show that your bladder did fully empty. You should drink plenty of fluids and stay well hydrated as this can help soften your stool and make it easier for you to void. Please drink AT LEAST 64 ounces of water per day. Increasing your fiber intake can help with frequency and consistency of your stools. Fruits, vegetables, and whole grains are all good sources of dietary fibers. In addition, you might consider adding supplemental fiber to your diet as well (i.e. Benefiber, Fiber Choice, Metamucil). Consider Miralax, 17g daily if you continue to have problems with constipation. You should schedule an appointment with your Primary Care Provider to discuss the possibility of adding a stool softener or laxative to your medications. Stool Softeners and Laxatives should only be taken after consultation with your PCP as they have the potential to cause electrolyte abnormalities and worsening symptoms. You have an appointment scheduled with urology on Thursday of next week. Please keep this appointment. Return to the Emergency Department if your current symptoms worsen despite treatment course outlined above, or if you develop any of the following symptoms : worsening abdominal pain, large amount of blood in the stool, black or tarry stools, unable to urinate despite proper hydration in 8-10 hours, fevers, chills , or uncontrollable vomiting. Problem Qualifiers Additional Impression: Constipation Constipation type: unspecified constipation type Qualified Codes: K59.00 - Constipation, unspecified
[2016-11-18 12:07] LABS: BASO % 0.3 %; BASO ABS # 0.02 K/uL (0-0.2); EOS % 1.9 %; HEMATOCRIT 37.9 % (37-47); IG% 0.3 %; LYMPH % 34.1 %; LYMPH ABS # 2.16 K/uL (1.2-3.4); MEAN CELL VOLUME 74.8 fL (80-100); MEAN CORPUSCULAR HEMOGLOBIN 21.9 pg (25-34); MEAN CORPUSCULAR HGB CONC 29.3 g/dl (32-36); MEAN PLATELET VOLUME 10.6 fL (7.4-10.4); MONO % 6.5 %; NEUT % 56.9 %; PLATELET COUNT 319 K/uL (130-400); RED BLOOD COUNT 5.07 M/uL (4.2-5.4); WHITE BLOOD COUNT 6.33 K/uL (4.8-10.8)
[2016-11-18 12:20] LABS: CALCIUM 8.6 mg/dl (8.5-10.1); CREATININE 0.64 mg/dl (0.60-1.20); POTASSIUM 3.8 mmol/L (3.5-5.1)
[2016-11-18 12:23] LABS: ALB/GLOB RATIO 0.9 (0.9-2)
[2016-11-18 12:29] LABS: ANISOCYTOSIS PRESENT; COMPLETE YES; MICROCYTOSIS PRESENT; TOXIC GRANULATION 1+
[2016-11-18 12:45] LABS: PREG INTERNAL NEGATIVE QC NEG CLEAR BACKGROUND; PREG INTERNAL POSITIVE QC POS CONTROL LINE
[2016-11-18] MEDS ORDERED: POLYETHYLENE (MIRALAX) 17 GM PACK PO STA (13:07)
[2016-11-18 13:51] LABS: MANUAL MICROSCOPIC REQUIRED? YES; URINE APPEARANCE CLEAR (CLEAR); URINE BILIRUBIN NEG (NEG); URINE COLOR RED; URINE NITRITE NEG (NEG); URINE PH 6.5 (4.5-7.5); URINE SPECIFIC GRAVITY 1.015 (1.000-1.030); UROBILINOGEN NEG (NEG)
[2016-11-18 14:06] LABS: REVIEW REQ? NO
[2016-11-18 14:21] LABS: URINE RBC >30 /hpf (0-4)
[2016-11-18 14:23] LABS: URINE BACTERIA NEG (NEG)
[2016-11-18 14:29] LABS: ZZUR CULT IF INDIC CLEAN CATCH NO
[2016-11-18 14:53] VITALS: BP 123/77; PULSE 88; O2SAT 99
== END 2016-11-18 14:54 | disposition home or self-care (01) ==
LOC: C.EDB 10:49 → C.EDC 14:54
DX: R39.11 Hesitancy of micturition (principal); K59.00 Constipation, unspecified; Z83.3 Family history of diabetes mellitus

== ENCOUNTER → 2016-11-25 | Outpatient (CLI) | payer OTHER | END | disposition home or self-care (01) | LOC: C.LABSPEC 16:50 | PROVIDERS: ATTEND Nurse Practitioner Adult Health | DX: R33.9 Retention of urine, unspecified (principal) ==

== ENCOUNTER 2017-01-05 00:03 | Emergency (ER) | payer OTHER ==
[~2017-01-05] VITALS: Ht 160 cm; Wt 84.9 kg
[2017-01-05 00:10] VITALS: TEMP 36.9; Ht 160 cm; Wt 84.9 kg
--- NOTE | 2017-01-05 00:35 | EMERGENCY ROOM VISIT NOTE ---
History Report prepared by Uyen: Karley Baig Under the Supervision of: Dr. Alesia Colon D.O. First contact with patient: 00:17 Chief Complaint: URINARY SYMPTOMS Stated Complaint: UNABLE TO PEE Nursing Triage Summary: pt states unable to pee, states last time was around [id number] and lower pelvic pain History of Present Illness The patient is a 21 year old female who presents to the Emergency Room with complaints of inability to urinate beginning about 8 hours ago. The patient has lower pelvic pain and decreased urine output. Her pain worsens when she walks. She states she feels like she needs to urinate but has been unable to. She notes that she has not been drinking much fluids today. She denies any fever or chills. The patient was seen in the ED previously for the same symptoms and had a CT scan and ultrasound done which were unremarkable. The patient has a history of UTIs and urinary hesitancy. Prior to examination, the nursing staff did a bladder scan and the patient had 24 CCs of urine in her bladder. Source of History: patient Onset: 8 hours ago Position: other (global) Quality: other (inability to urinate) Modifying Factors (Worsening): movement Associated Symptoms: No fevers, No chills Note: Pt notes pelvic pain Review of Systems See HPI for pertinent positives & negatives. A total of 10 systems reviewed and were otherwise negative. Past Medical & Surgical Medical Problems: (1) Chronic Sinusitis Nos (2) Deviated Nasal Septum (3) labor (4) Nasal Polyp Nos (5) with 18 completed weeks gestation (6) Vaginal bleeding during , antepartum Surgical Problems: (1) No significant past surgical history Family History FH: diabetes mellitus Social History Smoking Status: Never Smoker Alcohol Use: none Drug Use: none Marital Status: Housing Status: lives with significant other Occupation Status: [employer] student Current/Historical Medications No Active Prescriptions or Reported Meds Allergies Coded Allergies: No Known Allergies (Unverified , 01/05/17) Physical Exam Vital Signs Date Time Temp Pulse Resp B/P (MAP) Pulse Ox O2 Delivery O2 Flow Rate FiO2 01/05/17 03:30 92 16 106/58 98 Room Air 01/05/17 01:48 83 17 127/72 98 Room Air 01/05/17 00:10 36.9 94 18 140/90 100 Room Air Physical Exam HEENT: Head - normocephalic and atraumatic Pupils are equal, round, and reactive to light. Extraocular eye muscles are intact, and sclera are anicteric. Nose - moist nasal mucosa without discharge. Mouth - moist buccal mucosa. Oropharynx is nonerythematous and there is no tonsillar exudate or edema noted. Neck: Supple; no JVD, nuchal rigidity, cervical lymphadenopathy. Heart: Regular rate and rhythm. There is a normal S1 and S2 with no murmurs, clicks, or gallops appreciated. Lungs: Clear to auscultation bilaterally with no wheezes, rales, or rhonchi. Abdomen: Soft, completely nontender, nondistended, with good bowel sounds. There are no palpable pulsatile masses or hepatosplenomegaly. There is no guarding, rigidity, or rebound noted. Extremities: No evidence of cyanosis, clubbing, or edema. There are easily palpable peripheral pulses. Skin: warm and dry with good turgor and no rashes. Medical Decision & Procedures Laboratory Results Test 01/05/17 02:15 Urine Color YELLOW Urine Appearance CLEAR (CLEAR) Urine pH 6.0 (4.5-7.5) Urine Specific [place] 1.014 (1.000-1.030) Urine Protein NEG (NEG) Urine Glucose (UA) NEG (NEG) Urine Ketones NEG (NEG) Urine Occult Blood NEG (NEG) Urine Nitrite NEG (NEG) Urine Bilirubin NEG (NEG) Urine Urobilinogen NEG (NEG) Urine Leukocyte Esterase NEG (NEG) Urine Test NEG (NEG) Laboratory results per my review. Medications Administered Medications (Trade) Dose Ordered Sig/Naomi Route Start Time Stop Time Status Last Admin Dose Admin Ibuprofen (Motrin Tab) 800 mg NOW STAT PO 01/05/17 00:37 01/05/17 00:38 DC 01/05/17 00:44 800 MG Procedure Ibuprofen PO. ED Course 0025: Past medical records reviewed. The patient was evaluated in room B10. A complete history and physical exam was performed. 0037: Ibuprofen 800 mg PO. 0141: The patient still hasn't urinated. She drank two glasses of water. After another bladder scan, the patient has 100 ml of urine in her bladder. 0313: The patient urinated and her urinalysis is negative. She is no longer having abdominal pain. She already has an appointment with her Urologist on Thursday. 0331: Upon reevaluation, the patient is resting. I discussed findings and results with her. She verbalized agreement of the treatment plan. The patient was discharged home. Medical Decision The patient is a 21 year old female who presents to the Emergency Room with complaints of inability to urinate beginning about 8 hours ago. Differential diagnosis includes: UTI, urinary retention. Lab results show: urinalysis negative The patient has a history of urinary retention. She was seen by urologist in 1 month ago. It seems that she may have had some post void residual at that time. They plan to check her again in 1 month which is at her appointment in 2 days. There is Eyes no evidence of urinary tract infection. On physical exam, the patient's left lower quadrant abdominal pain has subsided. She was able to urinate without difficulty. I've asked the patient to keep himself well- hydrated and follow-up with urology on Thursday. Blood Pressure Screening Patient's blood pressure: Normal blood pressure Impression Primary Impression: Left lower quadrant pain Scribe Attestation The scribe's documentation has been prepared under my direction and personally reviewed by me in its entirety. I confirm that the note above accurately reflects all work, treatment, procedures, and medical decision making performed by me. Departure Information Dispostion Home / Self-Care Prescriptions No Active Prescriptions or Reported Meds Referrals No Doctor, Assigned (PCP) Forms HOME CARE DOCUMENTATION FORM, IMPORTANT VISIT INFORMATION Patient Instructions My [facility] Additional Instructions Take plenty of clear liquids Follow up with your Urologist on Thursday
[2017-01-05] MEDS ORDERED: IBUPROFEN 800 MG TAB PO STA (00:37)
[2017-01-05 02:25] LABS: URINE APPEARANCE CLEAR (CLEAR); URINE BILIRUBIN NEG (NEG); URINE COLOR YELLOW; URINE NITRITE NEG (NEG); URINE SPECIFIC GRAVITY 1.014 (1.000-1.030); UROBILINOGEN NEG (NEG)
[2017-01-05 02:26] LABS: MANUAL MICROSCOPIC REQUIRED? NO; REVIEW REQ? NO
[2017-01-05 03:30] VITALS: BP 106/58; PULSE 92; O2SAT 98
== END 2017-01-05 03:35 | disposition home or self-care (01) ==
LOC: C.EDB 00:04
DX: R10.32 Left lower quadrant pain (principal); Z87.440 Personal history of urinary (tract) infections; Z83.3 Family history of diabetes mellitus

== ENCOUNTER 2017-04-06 04:16 | Emergency (ER) | payer OTHER ==
[~2017-04-06] VITALS: Ht 165.1 cm; Wt 80.0 kg
[2017-04-06 04:20] VITALS: BP 132/88; TEMP 36.9; Ht 165.1 cm; Wt 80.0 kg
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
[2017-04-06 04:49] VITALS: PULSE 94; O2SAT 99
== END 2017-04-06 04:59 | disposition home or self-care (01) ==
LOC: C.EDB 04:18 → C.EDA 04:59
DX: T88.7XXA Unspecified adverse effect of drug or medicament, initial encounter (principal); G89.18 Other acute postprocedural pain; Z98.890 Other specified postprocedural states; R42 Dizziness and giddiness; R53.83 Other fatigue; R00.2 Palpitations; Z87.898 Personal history of other specified conditions; Z83.3 Family history of diabetes mellitus

== ENCOUNTER 2017-04-25 22:00 | Emergency (ER) | payer OTHER ==
[2017-04-25 22:03] VITALS: TEMP 36.4; Ht 157.5 cm
[2017-04-25] MEDS ORDERED: IBUPROFEN 600 MG TAB PO STA (22:20)
[2017-04-25] MEDS ORDERED: ACETAMINOPHEN 500 MG TAB PO STA (22:20)
--- NOTE | 2017-04-25 22:30 | EMERGENCY ROOM VISIT NOTE ---
History Report prepared by Retaibuzair: Benigno Potts Under the Supervision of: Dr. Vijay Cee M.D. First contact with patient: 22:13 Chief Complaint: SWELLING TO EXTREMITY Stated Complaint: SWELLING, DIFFICULTIES MOVING TOES ON LT FOOT History of Present Illness The patient is a 21 year old female with a past medical history of left foot surgery who presents to the ED with a cc of constant left foot swelling beginning at 1500. The patient states that she had a surgery on her left foot on 04/01/17. She reports that she was discharged home from [facility] with a cast. The patient states that today she had fallen in bathroom and hit her foot. She reports that she immediately experienced left sided foot pain, which she admits is now resolved. The patient states that since the accident, her left foot began swelling and has been swollen since. Positive resolved left foot pain. Negative applying ice today, smoking, alcohol or drug use. hitting her head, and LOC. Source of History: patient Onset: 1500 Position: foot (left) Quality: other (swelling) Timing: constant Associated Symptoms: No LOC Note: Associated symptoms: left foot pain Review of Systems See HPI for pertinent positives and negatives. A total of ten systems were reviewed and were otherwise negative. Past Medical & Surgical Medical Problems: (1) Chronic Sinusitis Nos (2) Deviated Nasal Septum (3) labor (4) Nasal Polyp Nos (5) with 18 completed weeks gestation (6) Vaginal bleeding during , antepartum Surgical Problems: (1) No significant past surgical history Family History FH: diabetes mellitus Social History Smoking Status: Never Smoker Alcohol Use: none Drug Use: none Marital Status: Housing Status: lives with significant other Occupation Status: [employer] student Current/Historical Medications Scheduled Aspirin (Aspirin Ec), 81 MG PO BID Allergies Coded Allergies: No Known Allergies (Unverified , 04/26/17) Physical Exam Vital Signs Date Time Temp Pulse Resp B/P (MAP) Pulse Ox O2 Delivery O2 Flow Rate FiO2 04/26/17 01:13 89 18 115/76 98 04/25/17 22:03 36.4 110 18 136/80 100 Room Air Physical Exam GENERAL: Awake, alert, well-appearing, NAD HENT: Normocephalic, atraumatic. EYES: Normal conjunctiva. Sclera non-icteric. NECK: Supple. No nuchal rigidity. FROM. RESPIRATORY: CTAB, no rhonchi, wheezing, crackles CARDIAC: tachycardic, regular rhythm, no MRG ABDOMEN: Soft, NTND, BS+ MSK: No chest wall TTP, no LE edema, LLE mildly cooler to touch than the RLE. Sensation intact to DP, SP and tibialis nerves, able to moves toes up and down. Incision over the left lateral malleolus, well healing. NEURO: GCS 15, CN 2-12 intact, moves all 4s on command SKIN: No rash or jaundice noted. Medical Decision & Procedures ER Provider Diagnostic Interpretation: Radiology results as stated below per my review and radiologist interpretation: LEFT ANKLE 3-VIEW: AP view grossly intact Ankle mortis appears congruent Appears as though patient does have a comminuted fracture at the base of the 2nd metatarsal on the oblique view. LEFT FOOT 3-VIEW: Same is exhibited on the Foot X-ray US VENOUS LEFT LOWER EXTREMITY: No evidence of deep venous thrombosis. US ARTERIAL LEFT LOWER EXTREMITY: No evidence of arterial occlusion or focal stenosis. Triphasic flow from the common femoral artery through the calf arteries. Biphasic flow in dorsalis pedis artery. Radiologist: Audi Choudhary MD Medications Administered Medications (Trade) Dose Ordered Sig/Naomi Route Start Time Stop Time Status Last Admin Dose Admin Ibuprofen (Motrin Tab) 600 mg NOW STAT PO 04/25/17 22:20 04/25/17 22:22 DC 04/25/17 22:34 600 MG Acetaminophen (Tylenol Tab) 1,000 mg NOW STAT PO 04/25/17 22:20 04/25/17 22:22 DC 04/25/17 22:34 1,000 MG ED Course 2215: The patient was evaluated in room B12B. A complete history and physical exam was performed. 0019: I reevaluated the patient and she is feeling better. Her sensation and pain is improved. The patient had normal ultrasounds. I discussed the results and treatment plan, which she agrees to. The patient is ready for discharge. Medical Decision Triage Nursing notes reviewed. Prior records reviewed. The patient is a 21 year old female with a past medical history of ankle surgery who presents to the ED with a cc of constant left foot swelling beginning at 1500. The patient's presentation and history were concerning for DVT, Post op sequela , arterial clot, sprain, and fracture. Patient was seen and evaluated the bedside. Patient states that she had a prior procedure and then involved a surgery earlier in March. Patient does have a cast that was placed. Patient states that she did have a fall that occurred today. Patient was complaining some mild pain and tingling. She also noted some swelling. Patient's extremity did feel slightly cooler compared to the right lower extremity. Patient denies any chest pain or shortness of breath. The cast was removed and the patient did have an arterial and venous Doppler studies of the left lower extremity. Patient had a negative DVT and arterial studies. Patient also did have plain films of the ankle and foot. Patient's surgical site is well appearing. Upon reassessment the patient was feeling improved. Patient was told to follow-up with her orthopedic surgeon. Patient states that she had this completed in [place]. Patient was deemed suitable for outpatient follow-up and treatment at this time. Patient was given strict follow-up, discharge, and return precautions. All questions were answered. Patient was deemed suitable for outpatient follow-up at this time. Patient agreed with the plan of care and was safely discharged home. Medication Reconcilliation Current Medication List: was personally reviewed by me Blood Pressure Screening Patient's blood pressure: Normal blood pressure Impression Primary Impression: Swelling of left extremity Scribe Attestation The scribe's documentation has been prepared under my direction and personally reviewed by me in its entirety. I confirm that the note above accurately reflects all work, treatment, procedures, and medical decision making performed by me. Departure Information Dispostion Home / Self-Care Referrals No Doctor, Assigned (PCP) [facility] Patient Instructions Cast Care, ED Leg Swelling Unilateral, My [facility] Additional Instructions Please return to the emergency department if you have worsening or recurrent symptoms not amenable to at-home treatment. Please call for a follow-up appointment with her primary care physician. Please take your medications as prescribed. If you have other concerns and/or complaints please feel free to also call your primary care physician's office or return the ED for further evaluation, management, and treatment. You may take 600 mg Ibuprofen every 6 hours as needed for pain with food for no more than 2 consecutive days. You may take tylenol 1000 mg every 6 hours as needed for pain. You may take motrin and tylenol separately or at the same time. Take your medications as prescribed. If you were seen between 11pm and 7AM all radiology reads will be re-read by our in house staff. If any major discrepancies are discovered, you will be notified. You have been examined and treated today on an emergency basis only. This is not a substitute for, or an effort to provide, complete comprehensive medical care. It is impossible to recognize and treat all injuries or illnesses in a single emergency department visit. It is therefore important that you follow up closely with [facility], your PCP, and/or your specialist(s). Call as soon as possible for an appointment. Thank you for your time and consideration. I look forward to speaking with you again soon. Please don't hesitate to call us if you have any questions.
[2017-04-26 01:13] VITALS: BP 115/76; PULSE 89; O2SAT 98
--- NOTE | 2017-04-26 07:05 | DIAGNOSTIC IMAGING REPORT ---
ULTRASOUND LEFT LOWER EXTREMITY ARTERIAL CLINICAL HISTORY: Fracture. Lower extremity tingling and coldness. COMPARISON STUDY: No priors. TECHNIQUE: Real-time, grayscale, and color Doppler sonography of the arteries of the left lower extremities performed from the inguinal crease to the foot. FINDINGS: No significant atherosclerotic plaque is identified. The left lower extremity arteries are widely patent with normal velocities and arterial waveforms. Velocities in the left common femoral artery measure up to 139 cm/s, velocities within the superficial femoral artery measure up to 132 cm/s, and velocities in the popliteal artery measure up to 70 cm/s. There is three-vessel runoff to the foot. Velocities within the calf arteries measure up to 52 cm/s. The dorsalis pedis artery is widely patent with velocities measuring up to 44 cm/s. IMPRESSION: Unremarkable sonographic assessment of the left lower extremity arteries as above. Dictated: 04/26/2017 6:41 AM Transcribed: 04/26/2017 7:05 AM Jesus Electronically signed by: Guanako Mullins M.D. 04/26/2017 7:13 AM Dictated Date/Time: 04/26/2017 6:41 AM
[2017-04-26] MEDS ORDERED: ASPI81TA28 PO (07:11)
--- NOTE | 2017-04-26 07:25 | DIAGNOSTIC IMAGING REPORT ---
ULTRASOUND LEFT LOWER EXTREMITY VENOUS CLINICAL HISTORY: Left leg swelling. COMPARISON STUDY: Bilateral lower extremity venous ultrasound dated 08/06/2016. TECHNIQUE: Real-time, grayscale, and color Doppler sonography of the deep veins of the left lower extremity was performed from the inguinal crease to the calf. Compression and augmentation were utilized. FINDINGS: There is no sonographic evidence of deep venous thrombosis identified in the left lower extremity. The common femoral, superficial femoral, and popliteal veins are patent and normally compressible. The greater saphenous vein and the profunda femoris vein at the junction with the common femoral vein are clear. The visualized calf veins are patent. IMPRESSION: There is no sonographic evidence of deep venous thrombosis identified in the left lower extremity. Electronically signed by: Guanako Mullins M.D. 04/26/2017 7:23 AM Dictated Date/Time: 04/26/2017 7:23 AM
--- NOTE | 2017-04-26 09:43 | DIAGNOSTIC IMAGING REPORT ---
LEFT ANKLE 3 VIEWS CLINICAL HISTORY: Fall. Left ankle pain. FINDINGS: 3 views of the left ankle are compared to study dated 10/27/2016. The skeletal structures are well mineralized. No fracture is seen. A screw track is noted in the lateral malleolus. An osteochondral defect is again seen in the talar dome laterally. This measures up to 6 mm. There is a joint effusion. Mild soft tissue swelling is present around the ankle. IMPRESSION: 1. Soft tissue swelling and joint effusion. No left ankle fracture is seen. 2. An osteochondral defect is again seen in the lateral talar dome. Electronically signed by: Guanako Mullins M.D. 04/26/2017 9:41 AM Dictated Date/Time: 04/26/2017 9:40 AM
--- NOTE | 2017-04-26 09:44 | DIAGNOSTIC IMAGING REPORT ---
LEFT FOOT 3 VIEWS CLINICAL HISTORY: Left foot pain. FINDINGS: 3 views of the left foot are compared to study dated 10/27/2016. The skeletal structures are well mineralized. No fracture is seen. The joint spaces of the foot are well-maintained. The overlying soft tissues are normal in appearance. IMPRESSION: Unremarkable radiographic assessment of the left foot. Electronically signed by: Guanako Mullins M.D. 04/26/2017 9:43 AM Dictated Date/Time: 04/26/2017 9:42 AM
== END 2017-04-26 01:14 | disposition home or self-care (01) ==
LOC: C.EDB 22:01
DX: R60.0 Localized edema (principal); J34.2 Deviated nasal septum; J32.9 Chronic sinusitis, unspecified; J33.9 Nasal polyp, unspecified; Z79.84 Long term (current) use of oral hypoglycemic drugs; Z83.3 Family history of diabetes mellitus

== ENCOUNTER 2017-04-26 05:01 | Emergency (ER) | payer OTHER ==
[~2017-04-26] VITALS: Ht 162.6 cm; Wt 80.0 kg
[2017-04-26 05:05] VITALS: TEMP 36.5; Ht 162.6 cm; Wt 80.0 kg
[2017-04-26] MEDS ORDERED: ASPI81TA28 PO (07:11)
--- NOTE | 2017-04-26 07:21 | EMERGENCY ROOM VISIT NOTE ---
History First contact with patient: 05:12 Chief Complaint: LEG PAIN,LEG INJURY Stated Complaint: LEG PAIN - WANTS CAST REMOVED History of Present Illness The patient is a 21 year old female who presents to the Emergency Room with complaints of ongoing left ankle and foot pain for the past few days was seen here yesterday that had a negative venous and arterial ultrasound. X-ray showed ongoing fracture. Patient had surgery by Dr. Khanna from [facility] on [id number]. She states that he removed some of the bone fragments. Patient states she fell yesterday and that is why further imaging was ordered yesterday by Dr. Cee. She describes the pain as throbbing, ranging in severity 5 out of 10 worse with movement and better with rest. Patient denies fevers, numbness, tingling, redness, drainage. She states there was some swelling there but it is improving. Patient states she wants the cast removed at his as this is bothering her. Review of Systems An 10 system review of systems was completed with positives and pertinent negatives listed in the HPI. 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 Vital signs stable. GENERAL: Pleasant female, in no acute distress, nondiaphoretic, well-developed well-nourished. SKIN: Capillary reflex less than 2 seconds. HEENT: Normocephalic. PERRLA. EOMI. Nares patent. Mucous membranes moist. Neck is supple without nuchal rigidity. HEART: Regular rate and rhythm without murmurs gallops or rubs. LUNGS: Clear to auscultation bilaterally without wheezes, rales or rhonchi. No retractions or accessory muscle use. MUSCULOSKELETAL: No gross musculoskeletal defects. No calf tenderness. Left foot slightly edematous; pedal pulses +2 equal and present bilaterally, incisional site intact without signs of infection, tender to palpation diffusely around the ankle and at the base of the foot without signs of a septic joint. No lymphangitis. No arellano or toe pain. No fifth metatarsal pain. NEURO: Patient was alert and oriented to person place and time. Normal sensation to light and sharp touch. No focal neurological deficits. Medical Decision & Procedures ED Course Prior records reviewed and summarized above. Triage Nursing notes reviewed. Additional history obtained from the family. The patient's history was concerning for swelling and pain in the leg. Differential diagnosis: Etiologies such as postsurgical complication, DVT, musculoskeletal, infection, joint effusion, trauma, lymphedema, idiopathic, as well as others were entertained.. Physical examination: The physical examination revealed no signs of infection. Neurovascularly intact. ER treatment provided: Splint was removed per patient's request. On reassessment the patient felt better. Diagnostics interpreted by me: Imaging studies: CT LEFT ANKLE: Comparison: Ankle radiographs 04/25/17 Osteochondral defect at the talar dome laterally. No dislocation. Soft tissue swelling overlying left lateral malleolus and peroneus longus tendon. Please correlate with precise surgical history and symptoms. Radiologist: Audi Choudhary MD Venous and arterial ultrasounds were negative for occlusion that were done less than 24 hours ago Consultation: A consultation was placed with the orthopedics, Dr. Masy. The case was discussed and diagnostics were reviewed. He recommends no splint and have the patient nonweightbearing and follow-up as scheduled next week with orthopedics. This appears to be consistent with on going ankle pain. Patient was advised to stay nonweightbearing and follow-up as scheduled with her orthopedist. Patient was neurovascularly and neurologically intact. She is well-appearing. Patient had no signs of a septic joint. She is advised to follow-up with orthopedics tomorrow for definitive care for ongoing issue here in the ER sooner for severe pain, numbness, tingling, worsening signs or symptoms or as needed. By the evaluation outlined above emergent etiologies such as DVT, septic joint, trauma , infection, CHF, as well as others were deemed relatively unlikely. The pt informed about the findings as listed above. All questions were answered and pleased with the treatment. Return instructions were outlined and the patient was discharged in stable condition. Referral: The patient was referred back to their orthopedics for follow-up in 2 to 3 days for a recheck of the current condition. Case reviewed with my attending The chart was completed utilizing [employer] Speech voice recognition software. Grammatical errors, random word insertions, pronoun errors, and incomplete sentences are an occassional consequence of this system due to software limitations, ambient noise, and hardware issues. Any formal questions or concerns about the content, text, or information contained within the body of this dictation should be directly addressed to the physician information technology assistant for clarification. Medical Decision As above Medication Reconcilliation Current Medication List: was personally reviewed by me Blood Pressure Screening Patient's blood pressure: Normal blood pressure Impression Primary Impression: Left ankle pain Departure Information Dispostion Home / Self-Care Condition GOOD Prescriptions No Active Prescriptions or Reported Meds Referrals [facility] (PCP) Patient Instructions My [facility] Additional Instructions Ibuprofen(Motrin, Advil) may be used for fever or pain. Use 600mg every six hours as needed. Take with food. Avoid using more than 2400mg in a 24 hour period. Do not use 2400mg per day for more than three consecutive days without physician direction. Prolonged inappropriate use can lead to stomach upset or ulcers. This medication can be taken if you need to drive, work, or perform activities which may be dangerous when taking narcotic pain medication. (AND/OR) Acetaminophen(Tylenol) may be used for fever or pain. Use 1000mg every six hours as needed. Avoid using more than 3000mg in a 24 hour period. This medication can be taken if you need to drive, work, or perform activities which may be dangerous when taking narcotic pain medication. Ice compresses for 20 minutes at a time four times daily for 2-3 days. Use the crutches as instructed. Rest and elevate your injury. Continue current medications. Return to the ER immediately for any numbness, tingling, severe pain, extreme swelling in the extremity or as needed. Call Orthopedics your tomorrow to arrange follow up for your injury. Problem Qualifiers Primary Impression: Left ankle pain Chronicity: acute Qualified Codes: M25.572 - Pain in left ankle and joints of left foot
[2017-04-26 07:30] VITALS: BP 134/75; PULSE 89; O2SAT 100
--- NOTE | 2017-04-26 07:30 | DIAGNOSTIC IMAGING REPORT ---
CT SCAN OF THE LEFT ANKLE WITHOUT IV CONTRAST CLINICAL HISTORY: Fall with left ankle pain. COMPARISON STUDY: Radiographs of the left ankle dated 04/25/2017 and 10/27/2016. TECHNIQUE: CT scan of the left ankle is performed from the distal tibia and fibula to the foot. Images are reviewed in the axial, sagittal, and coronal planes. IV contrast was not administered for this examination. A dose lowering technique was utilized adhering to the principles of ALARA. CT DOSE: 256.00 mGy.cm FINDINGS: The skeletal structures are well mineralized. There is no evidence of acute fracture. The ankle mortise is intact. A 7 mm osteochondral defect is again seen in the lateral aspect of the talar dome. Screw tracts are present in the distal fibula. There is a small joint effusion. Mild soft tissue edema is present around the ankle, greatest laterally. The regional musculature is normal in bulk. The Achilles tendon is intact as imaged. IMPRESSION: 1. Mild soft tissue/joint effusion. No fracture is seen. 2. An osteochondral defect is again noted in the lateral aspect of the talar dome. 3. Postoperative change is present in the lateral malleolus. Dictated: 04/26/2017 7:10 AM Transcribed: 04/26/2017 7:30 AM [email or web address] Electronically signed by: Guanako Mullins M.D. 04/26/2017 7:46 AM Dictated Date/Time: 04/26/2017 7:10 AM
== END 2017-04-26 07:31 | disposition home or self-care (01) ==
LOC: C.EDB 05:02
DX: M25.572 Pain in left ankle and joints of left foot (principal); M79.672 Pain in left foot; Z98.890 Other specified postprocedural states; W19.XXXA Unspecified fall, initial encounter; Z83.3 Family history of diabetes mellitus

== ENCOUNTER 2017-05-13 14:09 | Emergency (ER) | payer OTHER ==
[~2017-05-13] VITALS: Ht 157.5 cm; Wt 86.8 kg
[~2017-05-13 14:09] MED LIST changes: +ASPI81TA28 PO; -FOLI800T17 PO; -PROM25TA9 PO; -PYRI50TA77 PO
[2017-05-13 14:20] VITALS: TEMP 36.9; Ht 157.5 cm; Wt 86.8 kg
[2017-05-13] MEDS ORDERED: DiphenhydrAMINE HCL 50 MG/ML VIAL IV STA (14:45)
[2017-05-13] MEDS ORDERED: SODIUM CHLORIDE 0.9% 1000ML 1,000 ML IV ONE (14:45)
[2017-05-13] MEDS ORDERED: PROMETHAZINE HCL INJ 25 MG in SODIUM CHLORIDE 0.9% 50ML 50 ML IV STA (14:45)
--- NOTE | 2017-05-13 14:48 | EMERGENCY ROOM VISIT NOTE ---
ED Visit Note First contact with patient: 14:28 The patient was seen and examined with Dr. Brooks Miller, resident physician. We discussed the case and treatments ordered, reviewed the results, and determine the disposition. Please refer to the resident's note for additional details. I have been directly involved with the management and disposition as well as independently evaluated the patient as documented in this note.
[2017-05-13] MEDS ORDERED: PROMETHAZINE HCL INJ 25 MG/ML 1 ML VIAL ONE (14:58)
--- NOTE | 2017-05-13 15:00 | EMERGENCY ROOM VISIT NOTE ---
History First contact with patient: 14:28 (Brooks Miller MD) First contact with patient: 14:28 (Vijay Cee M.D.) Chief Complaint: HEADACHE Stated Complaint: HEADACHE History of Present Illness The patient is a 21 year old female who presents to the Emergency Room with complaints of ongoing headache for 1 month. The patient states that the headache started 1 month ago. She describes a generalized discomfort across her head, which is of aching quality. She describes a bilateral frontal fullness and congestion. She also states that since the symptoms started she gets over 100 daily episodes of sharp pain across the left side of her scalp. When the pain comes on at the 10/10. The pain only lasts for 1 second and then dissipates back to her usual low-grade baseline aching headache. Patient also states that 2 weeks ago she woke up from a nap and states that "it saw nothing but white". She states that she was unable to see anything. The pain resolved within 15 minutes so she decided not to come to the emergency room to be evaluated. Since her symptoms started she denies any focal extremity weakness, or changes in sensation. She has not had any difficulty with speech or comprehension. She has not had any changes in her hearing, ringing or dizziness. She does state a generalized sense of mental sluggishness. Patient has not had any fevers chills or sweats. She denies any neck stiffness. She has been eating without any issues. She has not had any abdominal pain or diarrheal symptoms. She has not any difficulty with urination. The patient's last menstrual period was on May 06, which is approximately 1 week ago. The patient states that she has never had this issue with headaches of this type in the past before. These headaches are not associated with menstruation. Her only other remarkable recent surgical history is recent repair in early April for a presumed osteochondral defect of the left ankle (the patient was unclear as to what the procedure was and this was deduced based on review of previous radiographs in the EMR). (Brooks Miller MD) Source of History: patient Onset: 1 month Position: head Symptom Intensity: moderate Quality: ache, sharp Timing: waxes/wanes Modifying Factors (Worsening): other (nothing) Modifying Factors (Relieving): rest (Vijay Cee M.D.) Review of Systems A 10 point review of systems was negative unless stated above. (Brooks Miller MD) Past Medical/Surgical History Medical Problems: (1) Chronic Sinusitis Nos (2) Deviated Nasal Septum (3) labor (4) Nasal Polyp Nos (5) with 18 completed weeks gestation (6) Vaginal bleeding during , antepartum Surgical Problems: (1) No significant past surgical history (Vijay Cee M.D.) Left ankle osteochondral defect repair, April 2017 (Brooks Miller MD) Family History FH: diabetes mellitus (Brooks Miller MD) FH: diabetes mellitus (Vijay Cee M.D.) Social History Smoking Status: Never Smoker Smokeless Tobacco Use: No Alcohol Use: none Drug Use: none Marital Status: Housing Status: lives with significant other Occupation Status: [employer] student (Brooks Miller MD) Current/Historical Medications No Active Prescriptions or Reported Meds Physical Exam Vital Signs Date Time Temp Pulse Resp B/P (MAP) Pulse Ox O2 Delivery O2 Flow Rate FiO2 05/13/17 18:12 76 16 96/65 100 05/13/17 16:20 76 16 113/76 98 Room Air 05/13/17 14:20 36.9 105 16 133/86 98 Room Air (Vijay Cee M.D.) Pain Rating (0-10): 0 (Brooks Miller MD) Physical Exam Constitutional: Vital signs as above were reviewed. Eyes: Pupils equal, round, and reactive to light. Extraocular muscles are intact. No proptosis. No photophobia. No neck stiffness ENT: Mucous membranes are moist. Oropharynx is clear. No sinus tenderness. TMs are clear bilaterally. Cardiovascular: Heart with a regular rate and rhythm. Pulses are palpable and symmetric in all 4 extremities. No pedal edema appreciated. Respiratory: Lungs clear to auscultation bilaterally. No wheezes, rales, or rhonchi appreciated. No accessory muscle use. No retractions. No increased work of breathing. GI: Abdomen soft, nontender, nondistended. Normal active bowel sounds. No abdominal hernias appreciated. No rebound. No guarding. : No CVA tenderness appreciated. Musculoskeletal: No midline cervical or vertebral tenderness. No gross deformities. No bony tenderness. No calf swelling or tenderness. Integumentary: Warm, dry, no rashes appreciated. Neurological: Patient awake, alert, and oriented x 3. Cranial nerves two through 12 grossly intact. Motor 5 out of 5 strength bilateral upper and lower extremities. Lymph: No cervical lymphadenopathy appreciated. (Brooks Miller MD) Medical Decision & Procedures ER Provider Diagnostic Interpretation: [~ rep ct add3]] HEAD CT NONCONTRAST CT DOSE: 921.40 mGy.cm HISTORY: persistent headache 1 month TECHNIQUE: Multiaxial CT images of the head were performed without the use of intravenous contrast. Automated exposure control was utilized for this study. A dose lowering technique was utilized adhering to the principles of ALARA. Comparison: None. Findings: The paranasal sinuses and mastoid air cells are clear. The calvarium and skull base are intact. The ventricles and sulci are within normal limits. There is no mass, hematoma, midline shift, or acute infarct. Mild motion artifact. Impression: No acute intracranial abnormality. Electronically signed by: Juanjo Head M.D. 05/13/2017 4:27 PM Dictated Date/Time: 05/13/2017 4:18 PM The status of this report is Signed. Draft = Not yet reviewed or approved by Radiologist. Signed = Reviewed and approved by Radiologist. <AttendingPhy></AttendingPhy> <FamilyPhy>No Doctor, Assigned</FamilyPhy> < PrimaryPhy>No Doctor, Assigned</PrimaryPhy> <UnitNumber>[id number]</UnitNumber> <VisitNumber>[id number] (Brooks Miller MD) Diagnostic Interpretation: Radiology results as stated above per my review and radiologist interpretation. (Vijay Cee M.D.) Laboratory Results Test 05/13/17 16:48 Urine Color YELLOW Urine Appearance CLEAR (CLEAR) Urine pH 6.5 (4.5-7.5) Urine Specific Grant 1.006 (1.000-1.030) Urine Protein NEG (NEG) Urine Glucose (UA) NEG (NEG) Urine Ketones NEG (NEG) Urine Occult Blood TRACE (NEG) Urine Nitrite NEG (NEG) Urine Bilirubin NEG (NEG) Urine Urobilinogen NEG (NEG) Urine Leukocyte Esterase NEG (NEG) Urine WBC (Auto) 1-5 /hpf (0-5) Urine RBC (Auto) 0-4 /hpf (0-4) Urine Hyaline Casts (Auto) 0 /lpf (0-5) Urine Epithelial Cells (Auto) >30 /lpf (0-5) Urine Bacteria (Auto) NEG (NEG) Urine Test NEG (NEG) Laboratory results reviewed by me (Vijay Cee M.D.) Medications Administered Medications (Trade) Dose Ordered Sig/Naomi Route Start Time Stop Time Status Last Admin Dose Admin Sodium Chloride 1,000 ml @ 999 mls/hr Q1H1M ONCE IV 05/13/17 14:45 05/13/17 15:45 DC 05/13/17 15:55 999 MLS/HR Promethazine HCl 25 mg/Sodium Chloride 51 ml @ 204 mls/hr NOW STAT IV 05/13/17 14:45 05/13/17 14:59 DC 05/13/17 14:45 204 MLS/HR Diphenhydramine HCl (Benadryl Inj) 25 mg NOW STAT IV 05/13/17 14:45 05/13/17 14:53 DC 05/13/17 15:55 25 MG Dexamethasone Sodium Phosphate 10 mg/Syringe 2.5 ml @ 1 mls/min ONE ONCE IV 05/13/17 16:45 05/13/17 16:47 DC 05/13/17 16:45 1 MLS/MIN Magnesium Sulfate (Magnesium Sulfate) 1 gm NOW STAT IV 05/13/17 16:37 05/13/17 16:38 DC 05/13/17 16:37 1 GM Fluticasone Propionate (Flonase Nasal [place]) . BID NA 05/13/17 21:00 05/13/17 21:00 DC 05/13/17 18:10 1 SPRAYS (Vijay Cee M.D.) ED Course 14:30 - Patient seen and assessed by me 14:45 - Discussed with Dr. Cee. 1 L NSS UA, U test CT brain 16: 30 -CT brain reviewed including report ; no acute process 10 mg Decadron IV ordered 1 g of mag sulfate IV ordered 17:00 - Normal urine including negative test Patient re-assessed and feeling moderately improved Discussed the results with the patient; recommended outpatient follow-up with primary care physician and supportive care going home; patient is agreeable Mag sulfate is currently running; will wait until mag sulfate is finished before discharging patient 17:30 - The patient was discharged in stable condition. (Thatte, Brooks, MD) Medical Decision The patient is a 21-year-old female who presents with 1 month of low grade dull headache, with intermittent sharp jolts lasting 1 second. Differential considered includes migraines, tension headaches, cluster headaches , sinus congestion, meningitis, intracranial mass, MS, pseudotumor cerebri or vasculitic process. Apart from mild tachycardia on arrival, the patient's vital signs remained stable throughout her stay. Her neurological examination was completely intact including cranial nerves and peripheral nerves. Her exam was unremarkable for acute signs of systemic illness or infection. Full history and physical exam was obtained from the patient. Based on the history lacking systemic symptoms of illness including fevers, chills, photophobia, neck stiffness, it was unlikely that this was a presentation of acute meningitis. The patient is not within the age window for vasculitic process such as GCA/polymyalgia rheumatica. The patient did report very transient 50 minutes of visual disturbance 2 weeks ago, but a CT brain was normal. She is also not within the age and demographic profile to have an acute CVA. CT brain was obtained and was normal. We also opted to check a urinalysis with urine to rule out for infection or . Patient was treated with conventional migraine therapies including 10 mg of Decadron and 1 gram of magnesium sulfate. In addition she was given promethazine and Benadryl. On reassessment she did appear to have felt better after obtaining these medications. I did discuss with her that it is unlikely that this was a serious/life-threatening pathology underlying her symptoms. Unfortunately in order to determine the true nature of her headache, will be important for her to follow-up routinely with her primary care provider so that an outpatient workup could be pursued for this. The patient advised of all the results of her workup and agreed with the plan to be discharged and follow-up closely with her primary care provider. (Brooks Miller MD) Head Trauma GCS Score: 15 (Brooks Miller MD) Medication Reconcilliation Current Medication List: was personally reviewed by me (Brooks Miller MD) Blood Pressure Screening Patient's blood pressure: Normal blood pressure (Brooks Miller MD) Impression Primary Impression: Headache Ruled Out: Brain bleed Departure Information Dispostion Home / Self-Care Condition GOOD Prescriptions No Active Prescriptions or Reported Meds Referrals No Doctor, Assigned (PCP) Patient Instructions My [facility] Additional Instructions You came to the hospital for evaluation of an ongoing headache that you had for the past month. We checked urine on need to rule out for infection and this was normal. Your urine test is also normal. Given the duration of her symptoms we checked a CT scan of her brain. Fortunately CT scan was normal and there is no acute process. While the exact cause of your headache is unclear, we have been able to rule out acute pathology with a CT scan. It will be important for you to follow-up closely with your primary care provider to determine the cause of the headache. In the meantime it is important to manage the headache supportively. The most important thing is to stay hydrated. In addition you can try [id number] medicines such as Tylenol and/or Motrin for pain and discomfort. Tylenol 650 mg every 4-6 hours as needed for pain OR Motrin (Ibuprofen) 400 mg every 4-6 hours as needed for pain. You have facial pressure, you can also try a nasal steroid (Flonase) to reduced nasal congestion. We will give you a bottle for this before you go home. Take 1 -2 sprays in each nostril for 7 days and see if there is improvement. If your symptoms fail to improve, acutely worsen, please seek medical attention immediately by either calling your primary care provider or going to your nearest emergency department. Otherwise, please see your primary care provider within 1 week to ensure that your symptoms continue to improve. It was a pleasure to be involved in your care and we wish you all the best. Problem Qualifiers Primary Impression: Headache Headache type: unspecified Headache chronicity pattern: chronic headache Intractability: not intractable Qualified Codes: R51 - Headache
--- NOTE | 2017-05-13 16:28 | DIAGNOSTIC IMAGING REPORT ---
HEAD CT NONCONTRAST CT DOSE: 921.40 mGy.cm HISTORY: persistent headache 1 month TECHNIQUE: Multiaxial CT images of the head were performed without the use of intravenous contrast. Automated exposure control was utilized for this study. A dose lowering technique was utilized adhering to the principles of ALARA. Comparison: None. Findings: The paranasal sinuses and mastoid air cells are clear. The calvarium and skull base are intact. The ventricles and sulci are within normal limits. There is no mass, hematoma, midline shift, or acute infarct. Mild motion artifact. Impression: No acute intracranial abnormality. Electronically signed by: Juanjo Head M.D. 05/13/2017 4:27 PM Dictated Date/Time: 05/13/2017 4:18 PM
[2017-05-13] MEDS ORDERED: MAGNESIUM SULFATE 1GM / D5W 1 GM BAG IV STA (16:37)
[2017-05-13] MEDS ORDERED: DEXAMETHASONE INJ 10 MG in SYRINGE 0 ML IV ONE (16:45)
[2017-05-13 18:12] VITALS: BP 96/65; PULSE 76; O2SAT 100
[2017-05-13] MEDS ORDERED: FLUTICASONE PROPIONATE NA SPR 16 GM BTL SCH (21:00)
== END 2017-05-13 18:15 | disposition home or self-care (01) ==
LOC: C.EDB 14:11
DX: R51 Headache (principal)

== ENCOUNTER → 2017-05-18 | Outpatient (CLI) | payer OTHER ==
[2017-05-18 13:20] LABS: BASO % 0.5 %; BASO ABS # 0.03 K/uL (0-0.2); EOS % 2.6 %; EOS ABS # 0.15 K/uL (0-0.5); HEMATOCRIT 40.8 % (37-47); HEMOGLOBIN 12.9 g/dL (12.0-16.0); IG# 0.01 K/uL (0.00-0.02); LYMPH ABS # 2.37 K/uL (1.2-3.4); MEAN CELL VOLUME 76.8 fL (80-100); MEAN CORPUSCULAR HEMOGLOBIN 24.3 pg (25-34); MEAN CORPUSCULAR HGB CONC 31.6 g/dl (32-36); MEAN PLATELET VOLUME 10.7 fL (7.4-10.4); MONO % 7.3 %; MONO ABS # 0.42 K/uL (0.11-0.59); NEUT % 48.4 %; PLATELET COUNT 328 K/uL (130-400); RED CELL DISTRIBUTION WIDTH CV 16.4 % (11.5-14.5); RED CELL DISTRIBUTION WIDTH SD 45.9 fL (36.4-46.3); WHITE BLOOD COUNT 5.78 K/uL (4.8-10.8)
[2017-05-18 13:50] LABS: BLOOD UREA NITROGEN 6 mg/dl (7-18); CALCIUM 8.8 mg/dl (8.5-10.1); CARBON DIOXIDE 28 mmol/L (21-32); CREATININE 0.66 mg/dl (0.60-1.20); GLUCOSE 94 mg/dl (70-99); POTASSIUM 3.7 mmol/L (3.5-5.1); SODIUM 138 mmol/L (136-145)
== END | disposition home or self-care (01) ==
LOC: C.LAB1850 11:40
PROVIDERS: ATTEND Family Medicine
DX: R51 Headache (principal)

== ENCOUNTER → 2017-06-27 | Outpatient (CLI) | payer OTHER ==
--- NOTE | 2017-06-27 11:56 | DIAGNOSTIC IMAGING REPORT ---
CERVICAL SPINE 2 OR 3 VIEWS CLINICAL HISTORY: 21 years-old Female presenting with R20.0 Numbness and tingling in both handsPt with ongoing neck pa. TECHNIQUE: Frontal, open-mouth odontoid, lateral, and submental views of the cervical spine were obtained. COMPARISON: None. FINDINGS: No scoliosis. Straightening of normal cervical lordosis likely positional. Lateral masses of C1 articulate normally with C2. The dens is intact. Vertebral bodies maintain normal height and alignment with the C7 vertebral body Martin visualized. Intervertebral disc heights preserved. No degenerative change. No compression deformity or subluxation. Normal predental interval. No prevertebral soft tissue swelling. IMPRESSION: Essentially normal cervical radiographs. No evidence of degenerative change or acute osseous injury. Straightening may be positional or related to muscle spasm. Electronically signed by: Alverto Charles M.D. 06/27/2017 11:55 AM Dictated Date/Time: 06/27/2017 11:54 AM
== END | disposition home or self-care (01) ==
LOC: C.RAD1850 10:17
PROVIDERS: ATTEND Family Medicine
DX: R20.0 Anesthesia of skin (principal); M54.2 Cervicalgia

== ENCOUNTER 2017-09-24 11:58 | Emergency (ER) | payer OTHER ==
[~2017-09-24] VITALS: Ht 157.5 cm; Wt 86.2 kg
[2017-09-24 12:09] VITALS: Ht 157.5 cm; Wt 86.2 kg
[2017-09-24] MEDS ORDERED: SODIUM CHLORIDE 0.9% 1000ML 1,000 ML IV STA (12:37)
[2017-09-24 13:29] LABS: BASO % 0.4 %; BASO ABS # 0.02 K/uL (0-0.2); EOS % 2.2 %; EOS ABS # 0.12 K/uL (0-0.5); HEMATOCRIT 42.5 % (37-47); HEMOGLOBIN 13.3 g/dL (12.0-16.0); IG# 0.01 K/uL (0.00-0.02); LYMPH % 38.9 %; MEAN CORPUSCULAR HEMOGLOBIN 24.4 pg (25-34); MEAN CORPUSCULAR HGB CONC 31.3 g/dl (32-36); MEAN PLATELET VOLUME 11.2 fL (7.4-10.4); MONO % 7.2 %; MONO ABS # 0.39 K/uL (0.11-0.59); NEUT % 51.1 %; NEUT ABS # 2.76 K/uL (1.4-6.5); PLATELET COUNT 296 K/uL (130-400); RED CELL DISTRIBUTION WIDTH CV 16.2 % (11.5-14.5); RED CELL DISTRIBUTION WIDTH SD 45.9 fL (36.4-46.3)
[2017-09-24 13:57] LABS: ALBUMIN 3.8 gm/dl (3.4-5.0); CALCIUM 8.6 mg/dl (8.5-10.1); CREATININE 0.66 mg/dl (0.60-1.20); POTASSIUM 3.8 mmol/L (3.5-5.1); TOTAL PROTEIN 7.8 gm/dl (6.4-8.2)
--- NOTE | 2017-09-24 16:55 | EMERGENCY ROOM VISIT NOTE ---
ED Visit Note First contact with patient: 12:27 CHIEF COMPLAINT: Urinary symptoms, dysuria, frequency and urgency, suprapubic pain HISTORY OF PRESENTING ILLNESS: This is a 21-year-old female who presents the emergency department with complaint of urinary symptoms that started yesterday. She states she has a feeling of fullness in her bladder, and feels urgency to go has been going frequently, but only a small amount of urine comes out. She states that she has dysuria as well. She has pain in her suprapubic area, but denies abdominal pain elsewhere. She denies any low back pain. She feels that her urine output has been decreased and she is having dark urine compared to normal. She reports a history of urinary retention a year ago that happened after she gave to her first child, she states that she was followed by urology for this, but they never figured out what caused this. She has not had any problems since then. She denies any fevers or chills. She denies any nausea, vomiting, diarrhea, or constipation. She denies any bloody or black stools. She denies , states her last menstrual period was 7/8 and she is regular. She states that she is sexually monogamous with her , she denies any concern for STDs. REVIEW OF SYSTEMS: A complete 10 point review of systems was reviewed with the patient with pertinent positives and negatives as per history of present illness. All else were negative. PAST MEDICAL HISTORY: No significant past medical or surgical history. SOCIAL HISTORY: Lives at home. She denies tobacco use. ALLERGIES: No known allergies. PHYSICAL EXAM: CONSTITUTIONAL: Pleasant and cooperative. No acute distress. Mildly dehydrated , but otherwise well appearing and well nourished. HEENT: Normocephalic, atraumatic. Pupils equal, round and reactive to light, EOMI. TMs normal. Pharynx normal. Tacky mucous membranes. NECK: Supple, full active range of motion without discomfort. RESPIRATORY: Clear to auscultation bilaterally with no wheezing, crackles, rhonchi or stridor. Equal expansion bilaterally. CARDIOVASCULAR: Regular rate and rhythm with no murmurs, rubs or gallops. Normal peripheral perfusion. No edema. GASTROINTESTINAL: Mildly tender to palpation suprapubic abdomen, no rebound tenderness or guarding. The abdomen is otherwise soft, nontender, nondistended. No palpable masses or HSM. Bowel sounds present in all quadrants. No CVA tenderness bilaterally. PELVIC EXAM: VULVA: No ulcers, vesicles or atrophy. VAGINA: Thin white discharge, no foul odor, no blood. CERVIX: The os is closed, pink, nontender, no cervical motion tenderness, no discharge. UTERUS: Normal size, nontender, no evidence of prolapse. ADNEXA: No palpable masses or tenderness. A nurse was present as a systems integrator during the examination. MUSCULOSKELETAL: Full range of motion of all joints without discomfort. INTEGUMENTARY: No rash or other significant dermatologic conditions noted. NEUROLOGIC: Alert and oriented X 4 with normal affect. Normal strength and sensation in all 4 extremities. No focal neurologic deficits noted. Normal speech. Normal gait observed. ED COURSE AND MEDICAL DECISION MAKING: CC: Patient presenting with complaint of urinary symptoms of dysuria, frequency and urgency, suprapubic pain DIFFERENTIAL DIAGNOSIS: Includes, but not limited to UTI, acute cystitis, urinary retention, acute kidney injury, ectopic , ovarian cyst, PID, among others. INTERPRETATION OF LABS: No leukocytosis, no anemia, normal platelets, no significant electrolyte abnormalities, normal renal function, normal liver enzymes. TSH within normal limits. UA negative, urine culture pending. Cervical cultures pending for BV/yeast, trichomoniasis, chlamydia, and gonorrhea. IMAGING: ULTRASOUND KIDNEYS AND BLADDER CLINICAL HISTORY: Urinary retention. COMPARISON STUDY: Abdominal CT dated 11/17/2016. TECHNIQUE: Real-time, grayscale, and color flow sonography of the kidneys and bladder is performed. Images are reviewed in the transverse and longitudinal planes. FINDINGS: Kidneys: The kidneys are normal in size and echotexture. The right kidney measures 10.3 cm in length and the left kidney measures 10.9 cm in length. There is no hydronephrosis. No shadowing renal calculi are identified. There is no sonographic evidence of contour deforming renal mass lesion. No perinephric fluid is identified. Bladder: The partially distended bladder is normal in appearance. Bilateral ureteral jets were seen. The bladder volume measures 128 cc. Upper abdomen: Survey images of the liver show evidence of hepatomegaly and hepatic steatosis. IMPRESSION: 1. Unremarkable sonographic assessment of the kidneys and bladder. 2. Hepatomegaly and hepatic steatosis. MEDICATION RECONCILIATION: I attest that I have personally reviewed the patient 's current medication list. INITIAL VITAL SIGNS REVIEW: I reviewed the patient's initial vital signs and interpret them as follows: T: Afebrile; BP: Hypertensive; HR: Tachycardic; RR : Within normal limit; Pulse Ox: Within normal limits on room air. Blood pressure screening: The patient was found to have an elevated blood pressure, which was felt to be situational. SUMMARY: Patient was evaluated at bedside, history and physical exam performed. Patient is alert and oriented, no acute distress, resting calmly in stretcher. Patient appears mildly dehydrated, and is noted to be tachycardic on arrival. She is afebrile. Mild suprapubic tenderness on exam, abdomen is otherwise soft and tender. No acute abdomen. Orders were placed at bedside for labs, UA and urine culture, urine , IV fluids for hydration, bladder scan to evaluate for urinary retention. Patient discussed with Dr. Jose, who agrees with my assessment and plan. Labs and imaging reviewed as above, unremarkable. Specifically, no evidence of UTI. Patient states that her suprapubic pain is resolved after voiding. Patient was able to void multiple times while in the emergency department. A post void residual bladder scan was performed, noting approximately 250 mL immediately after voiding per nurse, concerning for urinary retention. Because of this, a renal ultrasound was also ordered, this was reviewed and is noted to be unremarkable. Pelvic exam was also performed to rule out infectious causes for the patient's suprapubic pain, cultures pending. No clinical suspicion for PID at this time. I discussed with the patient and she states that she has been seen by urology in the past for problems with urinary retention, I encouraged her to schedule a follow-up appointment with urology to further evaluate her symptoms. Patient reassessed multiple times throughout ED stay, she has remained stable, her symptoms are improved, and she has been able to void several times on the ED. Tachycardia is resolved after IV fluids. She is tolerating p.o. well. Patient was updated on all results and plan for discharge, she was also encouraged to follow closely with her primary care provider. Patient was also given strict return precautions should her symptoms worsen, she verbalized understanding. Patient was discharged home in stable condition and ambulatory. Problem List Surgical Problems: (1) No significant past surgical history Status: Chronic Current/Historical Medications No Active Prescriptions or Reported Meds Allergies Coded Allergies: No Known Allergies (Unverified , 8/2/18) Vital Signs Date Time Temp Pulse Resp B/P (MAP) Pulse Ox O2 Delivery O2 Flow Rate FiO2 09/24/17 18:47 37.1 95 16 108/80 99 09/24/17 15:11 88 16 129/68 98 09/24/17 15:09 88 16 129/68 98 Room Air 09/24/17 12:09 37.1 121 18 136/93 98 Room Air Laboratory Results 09/24/17 13:15 Red Blood Count 5.45, Mean Corpuscular Volume 78.0, Mean Corpuscular Hemoglobin 24.4, Mean Corpuscular Hemoglobin Concent 31.3, Mean Platelet Volume 11.2, Neutrophils (%) (Auto) 51.1, Lymphocytes (%) (Auto) 38.9, Monocytes (%) (Auto) 7.2, Eosinophils (%) (Auto) 2.2, Basophils (%) (Auto) 0.4, Neutrophils # (Auto) 2.76, Lymphocytes # (Auto) 2.10, Monocytes # (Auto) 0.39, Eosinophils # (Auto) 0.12, Basophils # (Auto) 0.02 09/24/17 13:15 Test 09/24/17 13:15 09/24/17 13:30 09/24/17 17:18 White Blood Count 5.40 K/uL (4.8-10.8) Red Blood Count 5.45 M/uL (4.2-5.4) Hemoglobin 13.3 g/dL (12.0-16.0) Hematocrit 42.5 % (37-47) Mean Corpuscular Volume 78.0 fL (80-100) Mean Corpuscular Hemoglobin 24.4 pg (25-34) Mean Corpuscular Hemoglobin Concent 31.3 g/dl (32-36) Platelet Count 296 K/uL (130-400) Mean Platelet Volume 11.2 fL (7.4-10.4) Neutrophils (%) (Auto) 51.1 % Lymphocytes (%) (Auto) 38.9 % Monocytes (%) (Auto) 7.2 % Eosinophils (%) (Auto) 2.2 % Basophils (%) (Auto) 0.4 % Neutrophils # (Auto) 2.76 K/uL (1.4-6.5) Lymphocytes # (Auto) 2.10 K/uL (1.2-3.4) Monocytes # (Auto) 0.39 K/uL (0.11-0.59) Eosinophils # (Auto) 0.12 K/uL (0-0.5) Basophils # (Auto) 0.02 K/uL (0-0.2) RDW Standard Deviation 45.9 fL (36.4-46.3) RDW Coefficient of Variation 16.2 % (11.5-14.5) Immature Granulocyte % (Auto) 0.2 % Immature Granulocyte # (Auto) 0.01 K/uL (0.00-0.02) Anion Gap 3.0 mmol/L (3-11) Est Creatinine Clear Calc Drug Dose 135.1 ml/min Estimated GFR () 144.3 Estimated GFR (Non- 124.5 BUN/Creatinine Ratio 8.9 (10-20) Calcium Level 8.6 mg/dl (8.5-10.1) Total Bilirubin 0.4 mg/dl (0.2-1) Aspartate Amino Transf (AST/SGOT) 17 U/L (15-37) Alanine Aminotransferase (ALT/SGPT) 35 U/L (12-78) Alkaline Phosphatase 75 U/L (45-117) Total Protein 7.8 gm/dl (6.4-8.2) Albumin 3.8 gm/dl (3.4-5.0) Globulin 4.0 gm/dl (2.5-4.0) Albumin/Globulin Ratio 1.0 (0.9-2) Thyroid Stimulating Hormone (TSH) 0.962 uIu/ml (0.300-4.500) Urine Color YELLOW Urine Appearance CLEAR (CLEAR) Urine pH 8.5 (4.5-7.5) Urine Specific [place] 1.012 (1.000-1.030) Urine Protein NEG (NEG) Urine Glucose (UA) NEG (NEG) Urine Ketones NEG (NEG) Urine Occult Blood NEG (NEG) Urine Nitrite NEG (NEG) Urine Bilirubin NEG (NEG) Urine Urobilinogen NEG (NEG) Urine Leukocyte Esterase NEG (NEG) Urine WBC (Auto) 0 /hpf (0-5) Urine RBC (Auto) 0-4 /hpf (0-4) Urine Hyaline Casts (Auto) 0 /lpf (0-5) Urine Epithelial Cells (Auto) 20-30 /lpf (0-5) Urine Bacteria (Auto) NEG (NEG) Urine Test NEG (NEG) Medications Administered Medications (Trade) Dose Ordered Sig/Naomi Route Start Time Stop Time Status Last Admin Dose Admin Sodium Chloride 1,000 ml @ 999 mls/hr Q1H1M STAT IV 09/24/17 12:37 09/24/17 13:37 DC 09/24/17 13:18 999 MLS/HR Departure Information Impression Primary Impression: Urinary retention Dispostion Home / Self-Care Condition GOOD Prescriptions No Active Prescriptions or Reported Meds Referrals Stephanie Guo MD (PCP) José Manuel Alvarado MD, Urology Patient Instructions ED Retention Urinary Female, My [facility] Additional Instructions You have been evaluated and treated in the emergency department for your urinary symptoms. You do not have a urinary tract infection on labs today. Ultrasound of your bladder and kidneys did not show any abnormalities. It is unclear why you are having urinary retention at this time. Since you have had this problem in the past, it is important for you to follow-up with your urologist for reevaluation. Please call tomorrow to set up a follow-up appointment in the next few days. Vaginal cultures were sent to the lab today, these will take 48-72 hours for results. You will be notified of any abnormal results. Please return to the emergency department for any worsening symptoms, including severe abdominal pain or back pain, large amounts of blood in your urine, inability to pass urine for more than 8 hours, development of fevers/chills, or for any other concerns. School Instructions Return To School: 1 day
--- NOTE | 2017-09-24 18:02 | DIAGNOSTIC IMAGING REPORT ---
ULTRASOUND KIDNEYS AND BLADDER CLINICAL HISTORY: Urinary retention. COMPARISON STUDY: Abdominal CT dated 11/17/2016. TECHNIQUE: Real-time, grayscale, and color flow sonography of the kidneys and bladder is performed. Images are reviewed in the transverse and longitudinal planes. FINDINGS: Kidneys: The kidneys are normal in size and echotexture. The right kidney measures 10.3 cm in length and the left kidney measures 10.9 cm in length. There is no hydronephrosis. No shadowing renal calculi are identified. There is no sonographic evidence of contour deforming renal mass lesion. No perinephric fluid is identified. Bladder: The partially distended bladder is normal in appearance. Bilateral ureteral jets were seen. The bladder volume measures 128 cc. Upper abdomen: Survey images of the liver show evidence of hepatomegaly and hepatic steatosis. IMPRESSION: 1. Unremarkable sonographic assessment of the kidneys and bladder. 2. Hepatomegaly and hepatic steatosis. Electronically signed by: Guanako Mullins M.D. 09/24/2017 6:00 PM Dictated Date/Time: 09/24/2017 5:59 PM
[2017-09-24 18:47] VITALS: BP 108/80; PULSE 95; TEMP 37.1; O2SAT 99
== END 2017-09-24 18:47 | disposition home or self-care (01) ==
LOC: C.EDB 11:59
DX: R33.9 Retention of urine, unspecified (principal)

== ENCOUNTER → 2017-09-25 | Outpatient (CLI) | payer OTHER ==
[~2017-09-25] MED LIST changes: -ASPI81TA28 PO; +TAMS0.4C38 PO
== END | disposition home or self-care (01) ==
LOC: C.LABSPEC 15:13
PROVIDERS: ATTEND Urology
DX: R33.9 Retention of urine, unspecified (principal)

== ENCOUNTER 2017-09-27 11:08 | Emergency (ER) | payer OTHER ==
[~2017-09-27] VITALS: Ht 157.5 cm; Wt 86.0 kg
[2017-09-27 11:14] VITALS: TEMP 37.3; Ht 157.5 cm; Wt 86.0 kg
--- NOTE | 2017-09-27 11:32 | EMERGENCY ROOM VISIT NOTE ---
History Report prepared by Uyen: Jenelle Moura Under the Supervision of: Dr. Neelam Ruffin D.O. First contact with patient: 11:18 Chief Complaint: UNABLE TO VOID Stated Complaint: EMPTY BLADDER NOT ABLE TO PEE History of Present Illness The patient is a 21 year old female who presents to the Emergency Room with complaints of waxing and waning abdominal pain that started 2 days ago. The patient rates her pain a 7/10 in severity. She describes her pain as "sharp." She notes the pain started in her lower abdomen and has extended to her left side. The patient reports she has not urinated since yesterday afternoon around 1500. She states she has had this problem before and has seen Dr. Alvarado of Urology. She notes she saw him 2 days ago and was given a medication. She states her abdominal pain started shortly after starting the medication. She states she had a catheter placed in his office but it was taken out. She notes she had swelling to her bilateral legs yesterday but it is better today. The patient also complains of chest "heaviness" for the last couple of days. She denies any change in her menstrual cycles. She also denies fevers, chills, cough , or cold. She notes her mom has a history of kidney stones. Review of patient's ER visit from 3 days ago, patient with normal labs including normal renal function. UA was negative for infection and hematuria. Renal ultrasound reassuring. Source of History: patient Onset: 2 days ago Position: abdomen Symptom Intensity: 7/10 Quality: sharp Timing: waxes/wanes Associated Symptoms: + chest pain (chest heaviness), No fevers, No chills, No cough Review of Systems See HPI for pertinent positives & negatives. A total of 10 systems reviewed and were otherwise negative. Past Medical & Surgical Medical Problems: (1) Chronic Sinusitis Nos (2) Deviated Nasal Septum (3) labor (4) Nasal Polyp Nos (5) with 18 completed weeks gestation (6) Vaginal bleeding during , antepartum Surgical Problems: (1) No significant past surgical history Family History FH: diabetes mellitus Social History Smoking Status: Never Smoker Alcohol Use: none Drug Use: none Marital Status: Housing Status: lives with significant other Occupation Status: [employer] student Current/Historical Medications No Active Prescriptions or Reported Meds Allergies Coded Allergies: No Known Allergies (Unverified , 09/27/17) Physical Exam Vital Signs Date Time Temp Pulse Resp B/P (MAP) Pulse Ox O2 Delivery O2 Flow Rate FiO2 09/27/17 13:36 94 16 140/79 99 Room Air 09/27/17 13:20 Room Air 09/27/17 11:14 37.3 101 17 136/86 99 Room Air Physical Exam GENERAL: alert, well appearing, well nourished, no distress, non-toxic EYE EXAM: normal conjunctiva, PERRL and EOM's grossly intact OROPHARYNX: no exudate, no erythema, lips, buccal mucosa, and tongue normal and mucous membranes are moist NECK: supple, no nuchal rigidity, no adenopathy, non-tender LUNGS: Clear to auscultation. Normal chest wall mechanics, no w/r/r HEART: no murmurs, S1 normal and S2 normal ABDOMEN: abdomen soft, normo-active bowel sounds, no masses, no rebound or guarding. Lower abdominal and epigastric discomfort. BACK: Back is symmetrical on inspection and there is no deformity, no midline tenderness, no CVA tenderness. SKIN: no rashes and no bruising UPPER EXTREMITIES: upper extremities are grossly normal. FROM, nml pulses. LOWER EXTREMITIES: No pitting edema. FROM, nml pulses. NEURO EXAM: Normal sensorium, cranial nerves II-XII grossly intact, normal speech, no gross weakness of arms, no gross weakness of legs. Gross sensation intact. Medical Decision & Procedures ER Provider Diagnostic Interpretation: Radiology results have been interpreted by the radiologist and reviewed by me. (FRANCES/BLAD)RETROPERITON COMP HISTORY: Pain left flank pain, urinary retention COMPARISON: 09/24/2017 FINDINGS: Right kidney: Maximum dimension 9.2 cm. Mild fullness right renal collecting system. Normal corticomedullary differentiation and cortical thickness. Left kidney: Maximum dimension 10.4 cm. Slight fullness upper pole collecting system. Normal corticomedullary differentiation and cortical thickness. Bladder: No bladder wall thickening. The bilateral ureteral jets were identified. IMPRESSION: Mild fullness of the renal collecting systems bilaterally. No evidence for rolf hydronephrosis. The above report was generated using voice recognition software. It may contain grammatical, syntax or spelling errors. Electronically signed by: Evan Gallegos M.D. 09/27/2017 1:22 PM Dictated Date/Time: 09/27/2017 1:21 PM Laboratory Results Test 09/27/17 12:10 Urine Color YELLOW Urine Appearance CLEAR (CLEAR) Urine pH 6.5 (4.5-7.5) Urine Specific [place] 1.022 (1.000-1.030) Urine Protein NEG (NEG) Urine Glucose (UA) NEG (NEG) Urine Ketones NEG (NEG) Urine Occult Blood NEG (NEG) Urine Nitrite NEG (NEG) Urine Bilirubin NEG (NEG) Urine Urobilinogen NEG (NEG) Urine Leukocyte Esterase NEG (NEG) Laboratory results per my review. Medications Administered Medications (Trade) Dose Ordered Sig/Naomi Route Start Time Stop Time Status Last Admin Dose Admin Acetaminophen (Tylenol Tab) 650 mg NOW STAT PO 09/27/17 13:45 09/27/17 13:46 DC 09/27/17 13:45 650 MG ED Course 1120: The patient was evaluated in room A11B. A complete history and physical exam was performed. 1230: I rechecked the patient and she is feeling better. There was 400 put out in the [place]. 1345: Ordered Tylenol Tab 650 mg PO. 1355: Upon reevaluation, the patient is feeling better. I discussed the findings and the treatment plan with the patient. She verbalizes agreement and understanding. She was discharged home. Medical Decision Differential diagnosis: Etiologies such as renal colic, appendicitis, diverticulitis, mesenteric ischemia, aortic pathology, infections, inflammatory bowel disease, PUD, biliary pathology, UTI, as well as others were entertained. Patient well-appearing here. [place] much better after catheter placed and 400 mL' s of urine immediately returned. Urine clear, no hematuria. Patient's abdominal flank pain improved following catheter placement and drainage. Mild left flank pain is lingering so a repeat ultrasound was performed. No evidence of hydronephrosis. I do not suspect concurrent obstructive uropathy. I do not suspect acute renal failure. Given recent negative labs 3 days ago, I do not feel she needed repeat blood work at this time. Patient hemodynamically stable throughout. Symptoms improved with placement catheter. Patient already has a follow-up appointment scheduled with Dr. Alvarado this coming week. I do not suspect occult [employer] infection including PID, or other AIR[employer]ANE DISP[employer]ERK pathology. Discussed with her use and drainage of catheter, follow-up with urology, symptoms to watch and return for, she verbalized understanding was agreeable with plan. Medication Reconcilliation Current Medication List: was personally reviewed by me Blood Pressure Screening Patient's blood pressure: Elevated blood pressure Blood pressure disposition: Elevated BP felt to be situational Impression Primary Impression: Urinary retention Additional Impression: Martin catheter in place Scribe Attestation The scribe's documentation has been prepared under my direction and personally reviewed by me in its entirety. I confirm that the note above accurately reflects all work, treatment, procedures, and medical decision making performed by me. Departure Information Dispostion Home / Self-Care Prescriptions No Active Prescriptions or Reported Meds Referrals Stephanie Guo MD (PCP) Patient Instructions [facility] Additional Instructions Please keep your appointment with Dr. Alvarado this week. Please drink plenty of water to stay well-hydrated. Please continue your regular medications as prescribed. If he noticed the catheter does not seem to be draining appropriately, you develop blood in the catheter, develop recurrent abdominal pain or back pain, fevers or chills, nausea or vomiting, weakness or dizziness, you have any other new concerns, please return the emergency room. Problem Qualifiers
--- NOTE | 2017-09-27 13:23 | DIAGNOSTIC IMAGING REPORT ---
(FRANCES/BLAD)RETROPERITON COMP HISTORY: Pain left flank pain, urinary retention COMPARISON: 09/24/2017 FINDINGS: Right kidney: Maximum dimension 9.2 cm. Mild fullness right renal collecting system. Normal corticomedullary differentiation and cortical thickness. Left kidney: Maximum dimension 10.4 cm. Slight fullness upper pole collecting system. Normal corticomedullary differentiation and cortical thickness. Bladder: No bladder wall thickening. The bilateral ureteral jets were identified. IMPRESSION: Mild fullness of the renal collecting systems bilaterally. No evidence for rolf hydronephrosis. The above report was generated using voice recognition software. It may contain grammatical, syntax or spelling errors. Electronically signed by: Evan Gallegos M.D. 09/27/2017 1:22 PM Dictated Date/Time: 09/27/2017 1:21 PM
[2017-09-27 13:36] VITALS: BP 140/79; PULSE 94; O2SAT 99
[2017-09-27] MEDS ORDERED: ACETAMINOPHEN 325 MG TAB PO STA (13:45)
== END 2017-09-27 14:05 | disposition home or self-care (01) ==
LOC: C.EDB 11:10 → C.EDA 14:05
DX: R33.9 Retention of urine, unspecified (principal); Z84.1 Family history of disorders of kidney and ureter; Z83.3 Family history of diabetes mellitus

== ENCOUNTER 2017-09-29 01:39 | Emergency (ER) | payer OTHER ==
[2017-09-29 01:41] VITALS: TEMP 36.8
[2017-09-29] MEDS ORDERED: TAMS0.4C38 PO (02:02)
[2017-09-29] MEDS ORDERED: ACETAMINOPHEN 500 MG TAB PO STA (02:13)
[2017-09-29] MEDS ORDERED: PHENAZOPYRIDINE HCL 200 MG TAB PO STA (02:13)
[2017-09-29] MEDS ORDERED: CIPROFLOXACIN 500 MG TAB PO STA (02:13)
--- NOTE | 2017-09-29 02:14 | EMERGENCY ROOM VISIT NOTE ---
History Report prepared by Uyen: Jenelle Moura Under the Supervision of: Dr. Audi Phelps M.D. First contact with patient: 02:02 Chief Complaint: CATHETER REPLACEMENT Stated Complaint: CATHETER NEEDS TO BE OUT-BURNING AND PAIN History of Present Illness The patient is a 21 year old female who presents to the Emergency Room with complaints of persistent abdominal pain that started a couple of hours ago. The patient reports her pain a 7/10 in severity. The patient had a catheter put in 2 days ago and states it felt very full. She notes she woke up to sharp abdominal pains and she had urine dripping down her leg. She states she is having the urge to urinate which is causing bladder irritation. She notes it is "burning." She reports she has been eating and drinking normally. She notes she noticed some blood in her urine but denies vaginal bleeding. She states she has not tried taking any Tylenol or Ibuprofen. She also complains of low back pain. She notes she has an appointment with Dr. Alvarado tomorrow. Source of History: patient Onset: a couple of hours ago Position: abdomen Symptom Intensity: 7/10 Quality: sharp Timing: other (persistent) Associated Symptoms: + back pain, + urinary symptoms Review of Systems See HPI for pertinent positives & negatives. A total of 10 systems reviewed and were otherwise negative. Past Medical & Surgical Medical Problems: (1) Chronic Sinusitis Nos (2) Deviated Nasal Septum (3) labor (4) Nasal Polyp Nos (5) with 18 completed weeks gestation (6) Vaginal bleeding during , antepartum Surgical Problems: (1) No significant past surgical history Family History FH: diabetes mellitus Social History Smoking Status: Never Smoker Alcohol Use: none Drug Use: none Marital Status: Housing Status: lives with significant other Occupation Status: [employer] student Current/Historical Medications Scheduled Tamsulosin Hcl (Flomax), 0.4 MG PO DAILY Allergies Coded Allergies: No Known Allergies (Unverified , 09/29/17) Physical Exam Vital Signs Date Time Temp Pulse Resp B/P (MAP) Pulse Ox O2 Delivery O2 Flow Rate FiO2 09/29/17 06:20 86 18 121/89 97 Room Air 09/29/17 05:25 90 16 136/89 96 Room Air 09/29/17 01:41 36.8 115 18 130/87 100 Room Air Physical Exam GENERAL: Patient is well appearing and in minimal distress. EYES: No scleral icterus, unremarkable pupils. ENT: Mucous membranes moist, no nasal congestion. NECK: No masses appreciated, no meningismus, trachea is midline. RESPIRATORY: No dyspnea. Clear to auscultation and equal bilaterally. No wheeze , no rhonchi. CARDIOVASCULAR: Regular rate and rhythm. No murmurs, rubs, gallops appreciated. GASTROINTESTINAL: Abdomen soft, nontender, no peritonitis. Bowel sounds positive. No masses appreciated. BACK: No midline tenderness, no CVA tenderness EXTREMITIES: Normal motion all extremities, no cyanosis, no edema. NEUROLOGIC: Alert and oriented, no acute motor or sensory deficits, no focal weakness, cranial nerves grossly intact. SKIN: No rash, no jaundice, no diaphoresis. Medical Decision & Procedures ER Provider Diagnostic Interpretation: Radiology results and stated below per my review and radiologist interpretation: US PELVIC/ENDOVAG: The uterus is normal in size. The endometrium is normal in thickness. Free fluid in the pelvic cul-de-sac noted. There is a simple cyst involving the right ovary measure 2.8 x 2.6 x 2.3 cm. Nondominant follicles involving the left ovary. Positive internal vascular flow noted bilaterally. Radiologist: Franklyn Arriola M.D. Laboratory Results Test 09/29/17 02:33 Urine Color YELLOW Urine Appearance CLEAR (CLEAR) Urine pH 6.0 (4.5-7.5) Urine Specific Excel 1.021 (1.000-1.030) Urine Protein NEG (NEG) Urine Glucose (UA) NEG (NEG) Urine Ketones NEG (NEG) Urine Occult Blood 3+ (NEG) Urine Nitrite NEG (NEG) Urine Bilirubin NEG (NEG) Urine Urobilinogen NEG (NEG) Urine Leukocyte Esterase NEG (NEG) Urine WBC (Auto) 1-5 /hpf (0-5) Urine RBC (Auto) >30 /hpf (0-4) Urine Hyaline Casts (Auto) 1-5 /lpf (0-5) Urine Epithelial Cells (Auto) >30 /lpf (0-5) Urine Bacteria (Auto) NEG (NEG) Urine Test NEG (NEG) Laboratory results as reviewed by me. Medications Administered Medications (Trade) Dose Ordered Sig/Naomi Route Start Time Stop Time Status Last Admin Dose Admin Ciprofloxacin (Cipro Tab) 500 mg NOW STAT PO 09/29/17 02:13 09/29/17 02:15 DC 8/7/18 02:33 500 MG Acetaminophen (Tylenol Tab) 1,000 mg NOW STAT PO 09/29/17 02:13 09/29/17 02:15 DC 09/29/17 02:32 1,000 MG Phenazopyridine HCl (Pyridium Tab) 200 mg NOW STAT PO 09/29/17 02:13 09/29/17 02:15 DC 09/29/17 02:33 200 MG Ondansetron HCl (Zofran Odt) 4 mg ONE ONCE PO 09/29/17 03:30 09/29/17 03:31 DC 09/29/17 03:23 4 MG Oxycodone HCl (Roxicodone Immediate Rel Tab) 5 mg NOW STAT PO 09/29/17 03:54 09/29/17 03:55 DC 09/29/17 04:06 5 MG Ciprofloxacin (Cipro 500MG Home Pack) 1 homepack UD ONCE PO 09/29/17 05:30 09/29/17 05:31 DC 09/29/17 06:22 1 HOMEPACK Oxycodone HCl (Roxicodone Immediate Rel 5MG Home Pack) 1 homepack UD ONCE PO 09/29/17 06:15 09/29/17 06:16 DC 09/29/17 06:22 1 HOMEPACK ED Course 0202: The patient was evaluated in room C5. A complete history and physical exam was performed. 0305: The patient is resting comfortably. Awaiting urine results. 0318: The patient states she is nauseous at this time. 0354: The patient is now complaining of the worst pain of her life in her left pelvis. She is concerned about her ovaries. The patient is calmly typing on her computer at this time. 0605: The patient states she is feeling better and would like to go home. She states she would like something for pain for the next 24 hours until she sees her urologist tomorrow. 0610: Reevaluated the patient. Discussed results and discharge instructions: She verbalized understanding and agreement. The patient is ready for discharge. Medical Decision Differential: Appendicitis, Ovarian Torsion, PID, Tubo-ovarian Abscess, Intrauterine , Ectopic , Endometriosis, amongst other pathologies entertained. 21 yr old female arrives due to blocked navarro secondary to not draining leg bag. After draining bag the navarro is draining well. Patient initially notes some burning secondary to navarro, then noted some blood in navarro. I did UA which was remarkable for some blood but otherwise unremarkable. Could be some cystitis beginning secondary to several foleys recently. When going to discharge she notes severe left pelvic pain though is sitting on computer and doesn't appear in any distress. Exam still benign. US pelvis done revealing normal left ovary. There is right ovarian cyst and small amount free fluid which could be ruptured cyst, but good flow and she is in no way septic not does she appear to be hypovolemic. She has no peritonitis on examination and again I will not she appears in no distress on multiple evaluations. Will send home with eduard for today and plan to see her Urologist tomorrow. She looks well and is stable. She is aware of symptoms requiring RTED. Medication Reconcilliation Current Medication List: was personally reviewed by me Blood Pressure Screening Patient's blood pressure: Normal blood pressure Impression Primary Impression: Bladder pain Additional Impressions: Navarro catheter in place Complication of Navarro catheter Scribe Attestation The scribe's documentation has been prepared under my direction and personally reviewed by me in its entirety. I confirm that the note above accurately reflects all work, treatment, procedures, and medical decision making performed by me. Departure Information Dispostion Home / Self-Care Referrals Stephanie Guo MD (PCP) Patient Instructions My [facility] Additional Instructions Keep well hydrated. Follow up with Urologist as planned. Return if fevers, vomiting, passing out, or other concerns. Take Cipro twice daily until seen by Urologist. Use Tylenol and Motrin as needed for discomfort. Problem Qualifiers
[2017-09-29] MEDS ORDERED: ONDANSETRON 4MG OD TAB PO ONE (03:30)
[2017-09-29] MEDS ORDERED: OXYCODONE HCL IR 5 MG TAB (IMMEDIATE RELEASE) PO STA (03:54)
[2017-09-29] MEDS ORDERED: CIPROFLOXACIN 500MG HOME PACK PO ONE (05:30)
[2017-09-29] MEDS ORDERED: OXYCODONE IR HOME PACK PO ONE (06:15)
[2017-09-29 06:20] VITALS: BP 121/89; PULSE 86; O2SAT 97
--- NOTE | 2017-09-29 06:52 | DIAGNOSTIC IMAGING REPORT ---
PELVIC COMPLETE NON OB CLINICAL HISTORY: left pelvic pain sudden onset PAIN COMPARISON STUDY: None FINDINGS: The uterus measured 8.7 cm. The endometrial stripe measured 6 mm. The right ovary measured 5 cm maximum dimension including a 2.8 cm cyst. Normal vascular flow.. The left ovary measured 2.9 cm maximum dimension with normal vascular flow. There is no ultrasonographic evidence of ovarian torsion. It should be noted that ovarian torsion can be present with normal Doppler ultrasonographic findings. There was no evidence of pathologic free pelvic fluid. IMPRESSION: 1. 2.8 cm right ovarian cyst. 2. Otherwise negative pelvic ultrasound. The above report was generated using voice recognition software. It may contain grammatical, syntax or spelling errors. Electronically signed by: Evan Gallegos M.D. 09/29/2017 6:50 AM Dictated Date/Time: 09/29/2017 6:49 AM
== END 2017-09-29 06:27 | disposition home or self-care (01) ==
LOC: C.EDB 01:40 → C.EDC 06:27
DX: T83.9XXA Unspecified complication of genitourinary prosthetic device, implant and graft, initial encounter (principal); X58.XXXA Exposure to other specified factors, initial encounter; R39.89 Other symptoms and signs involving the genitourinary system; R31.9 Hematuria, unspecified; N83.201 Unspecified ovarian cyst, right side; R10.2 Pelvic and perineal pain